=== PATIENT | female | born 1995 | race Caucasian/White ===

== ENCOUNTER 2017-04-07 18:53 | Emergency (ER) | payer BC ==
--- NOTE | 2017-04-07 19:16 | EDM.PDOC ---
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 [No Known Home Meds] 04/07/17 [History] ED ROS GENERAL - Review of Systems Review Of Systems: ROS reveals no pertinent complaints other than HPI. ED EXAM, GENERAL - Physical Exam Exam: See Below (See dictation) Course - Vital Signs Last Recorded V/S: Last Vital Signs Temp 97.8 F 04/07/17 19:11 Pulse 115 H 04/07/17 19:11 Resp 18 04/07/17 19:11 BP 134/83 04/07/17 19:11 Pulse Ox 98 04/07/17 19:11 - Orders/Labs/Meds Orders: Active Orders 24 hr Category Date Time Status UA W/MICROSCOPIC [URIN] Stat Lab 04/07/17 20:18 Ordered Labs: Laboratory Tests 04/07/17 04/07/17 04/07/17 Range/Units 19:29 19:29 19:29 WBC 8.74 (4.0-11.0) K/uL RBC 4.57 (4.30-5.90) M/uL Hgb 13.5 (12.0-16.0) g/dL Hct 39.1 (36.0-46.0) % MCV 85.6 (80.0-98.0) fL MCH 29.5 (27.0-32.0) pg MCHC 34.5 (31.0-37.0) g/dL RDW Std Deviation 40.7 (28.0-62.0) fl RDW Coeff of Gloria 13 (11.0-15.0) % Plt Count 316 (150-400) K/uL MPV 8.60 (7.40-12.00) fL Neut % (Auto) 64.7 (48.0-80.0) % Lymph % (Auto) 25.2 (16.0-40.0) % [place] % (Auto) 9.7 (0.0-15.0) % Eos % (Auto) 0.2 (0.0-7.0) % Baso % (Auto) 0.2 (0.0-1.5) % Neut # (Auto) 5.7 (1.4-5.7) K/uL Lymph # (Auto) 2.2 (0.6-2.4) K/uL [place] # (Auto) 0.9 H (0.0-0.8) K/uL Eos # (Auto) 0.0 (0.0-0.7) K/uL Baso # (Auto) 0.0 (0.0-0.1) K/uL Nucleated RBC % 0.0 /100WBC Nucleated RBCs # 0 K/uL Sodium 138 (136-146) mmol/L Potassium 3.8 (3.5-5.1) mmol/L Chloride 111 H (98-110) mmol/L Carbon Dioxide 18 L (21-31) mmol/L BUN 10 (6.0-23.0) mg/dL Creatinine 0.7 (0.6-1.5) mg/dL Est Cr Clr Drug Dosing 106.05 mL/min Estimated GFR (MDRD) > 60.0 ml/min Glucose 114 H (60-110) mg/dL Calcium 9.1 (8.8-10.8) mg/dL Total Bilirubin 0.3 (0.1-1.5) mg/dL AST 13 (5-40) IU/L ALT 16 (8-54) IU/L Alkaline Phosphatase 71 (40-150) Total Protein 6.7 (6.0-8.0) g/dL Albumin 3.9 (3.5-5.0) g/dL Globulin 2.8 (2.0-3.5) g/dL Albumin/Globulin Ratio 1.4 (1.3-2.8) HCG, Quant 5426.3 mIU/mL Blood Type O NEGATIVE Departure - Departure Disposition: Home, Self-Care 01 Clinical Impression: - Discharge Information Referrals: PCP,None [Primary Care Provider] - Forms: ED Department Discharge Additional Instructions: vitamins recommended available [id number] most grocery stores [employer] Smoking alcohol safe cessation recommended Establish with OB provider there are 2 provider groups in [facility] call numbers below for appropriate follow-up and establish care [facility] [address] [place] [id number] [facility] [address] [address] The following information is given to patients seen in the emergency department who are being discharged to home. This information is to outline your options for follow-up care. We provide all patients seen in our emergency department with a follow-up referral. The need for follow-up, as well as the timing and circumstances, are variable depending upon the specifics of your emergency department visit. If you don't have a primary care physician on staff, we will provide you with a referral. We always advise you to contact your personal physician following an emergency department visit to inform them of the circumstance of the visit and for follow-up with them and/or the need for any referrals to a consulting specialist. The emergency department will also refer you to a specialist when appropriate. This referral assures that you have the opportunity for follow-up care with a specialist. All of these measure are taken in an effort to provide you with optimal care, which includes your follow-up. Under all circumstances we always encourage you to contact your private physician who remains a resource for coordinating your care. When calling for follow-up care, please make the office aware that this follow-up is from your recent emergency room visit. If for any reason you are refused follow-up, please contact the [facility] emergency department at and asked to speak to the emergency department charge nurse. - My Orders Last 24 Hours: My Active Orders 04/07/17 20:18 UA W/MICROSCOPIC [URIN] Stat - Assessment/Plan Last 24 Hours: My Active Orders 04/07/17 20:18 UA W/MICROSCOPIC [URIN] Stat <Braeden Price - Last Filed: 04/07/17 21:06> ED HPI GENERAL MEDICAL PROBLEM - General Source of Information: Reports: Patient - History of Present Illness INITIAL COMMENTS - FREE TEXT/NARRATIVE: HISTORY AND PHYSICAL: History of present illness: [Patient has had multiple home tests were positive, she has no complaints fever nausea vomiting diarrhea constipation chest pain shortness breath headache dizziness palpitation about a urine symptoms no vaginal bleeding LMP March 06 through the uncertain dates ] Patricia has taken over the patient for continued management C Patricia's detailed note Review of systems: As per history of present illness and below otherwise all systems reviewed and negative. Past medical history: As per history of present illness and as reviewed below otherwise noncontributory. Surgical history: As per history of present illness and as reviewed below otherwise noncontributory. Social history: No reported history of drug or alcohol abuse. Family history: As per history of present illness and as reviewed below otherwise noncontributory. Physical exam: HEENT: Atraumatic, normocephalic, pupils reactive, negative for conjunctival pallor or scleral icterus, mucous membranes moist, throat clear, neck supple, nontender, trachea midline. Lungs: Clear to auscultation, breath sounds equal bilaterally, chest nontender. Heart: S1S2, regular, negative for clicks, rubs, or JVD. Abdomen: Soft, nondistended, nontender. Negative for masses or hepatosplenomegaly. Negative for costovertebral tenderness. Pelvis: Stable nontender. Genitourinary: Deferred. Rectal: Deferred. Extremities: Atraumatic, negative for cords or calf pain. Neurovascular unremarkable. Neuro: Awake, alert, oriented. Cranial nerves II through XII unremarkable. Cerebellum unremarkable. Motor and sensory unremarkable throughout. Exam nonfocal. Diagnostics: []CBC CMP UA hCG ABO Therapeutics: []Endorsed to Patricia Impression: []Home positive LMP first week March uncertain dates HCG consistent with 5 weeks ABO type O negative Definitive disposition and diagnosis as appropriate pending reevaluation and review of above. Past Medical History HEENT History: Reports: None Cardiovascular History: Reports: None Respiratory History: Reports: None Gastrointestinal History: Reports: None DIRECTOR DATABASE History: Reports: None Musculoskeletal History: Reports: None Neurological History: Reports: None Psychiatric History: Reports: Anxiety Endocrine/Metabolic History: Reports: None - Infectious Disease History Infectious Disease History: Reports: None - Past Surgical History HEENT Surgical History: Reports: None Cardiovascular Surgical History: Reports: None Respiratory Surgical History: Reports: None Female Surgical History: Reports: None Endocrine Surgical History: Reports: None Social & Family History - Family History Family Medical History: Noncontributory HEENT: Reports: None Cardiac: Reports: None - Tobacco Use Smoking Status *Q: Never Smoker Years of Tobacco use: 2 Packs/Tins Daily: 0.5 - Recreational Drug Use Recreational Drug Use: No Recreational Drug Type: Reports: Marijuana/Hashish Course - Orders/Labs/Meds Labs: Laboratory Tests 04/07/17 04/07/17 04/07/17 Range/Units 19:29 19:29 19:29 WBC 8.74 (4.0-11.0) K/uL RBC 4.57 (4.30-5.90) M/uL Hgb 13.5 (12.0-16.0) g/dL Hct 39.1 (36.0-46.0) % MCV 85.6 (80.0-98.0) fL MCH 29.5 (27.0-32.0) pg MCHC 34.5 (31.0-37.0) g/dL RDW Std Deviation 40.7 (28.0-62.0) fl RDW Coeff of Gloria 13 (11.0-15.0) % Plt Count 316 (150-400) K/uL MPV 8.60 (7.40-12.00) fL Neut % (Auto) 64.7 (48.0-80.0) % Lymph % (Auto) 25.2 (16.0-40.0) % [place] % (Auto) 9.7 (0.0-15.0) % Eos % (Auto) 0.2 (0.0-7.0) % Baso % (Auto) 0.2 (0.0-1.5) % Neut # (Auto) 5.7 (1.4-5.7) K/uL Lymph # (Auto) 2.2 (0.6-2.4) K/uL [place] # (Auto) 0.9 H (0.0-0.8) K/uL Eos # (Auto) 0.0 (0.0-0.7) K/uL Baso # (Auto) 0.0 (0.0-0.1) K/uL Nucleated RBC % 0.0 /100WBC Nucleated RBCs # 0 K/uL Sodium 138 (136-146) mmol/L Potassium 3.8 (3.5-5.1) mmol/L Chloride 111 H (98-110) mmol/L Carbon Dioxide 18 L (21-31) mmol/L BUN 10 (6.0-23.0) mg/dL Creatinine 0.7 (0.6-1.5) mg/dL Est Cr Clr Drug Dosing 106.05 mL/min Estimated GFR (MDRD) > 60.0 ml/min Glucose 114 H (60-110) mg/dL Calcium 9.1 (8.8-10.8) mg/dL Total Bilirubin 0.3 (0.1-1.5) mg/dL AST 13 (5-40) IU/L ALT 16 (8-54) IU/L Alkaline Phosphatase 71 (40-150) Total Protein 6.7 (6.0-8.0) g/dL Albumin 3.9 (3.5-5.0) g/dL Globulin 2.8 (2.0-3.5) g/dL Albumin/Globulin Ratio 1.4 (1.3-2.8) HCG, Quant 5426.3 mIU/mL Blood Type O NEGATIVE Departure - Departure Time of Disposition: 21:05 Condition: Good
[2017-04-07 19:58] LABS: CHLORIDE,CL 111 mmol/L (98-110); SODIUM,NA 138 mmol/L (136-146)
[2017-04-07 22:05] VITALS: BP 136/77
== END 2017-04-07 22:01 | disposition home or self-care (01) ==
LOC: MW.ED 18:53
DX: Z34.91 Encounter for supervision of normal pregnancy, unspecified, first trimester (principal)
CPT/HCPCS: 36415; 80053; 81001; 84702; 85025; 86900; 86901; 87086; 99282; 99283

== ENCOUNTER 2017-06-27 15:42 | Emergency (ER) | payer OTHER, BC ==
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
[2017-06-27 16:57] VITALS: BP 121/74
== END 2017-06-27 16:58 | disposition home or self-care (01) ==
LOC: MW.ED 15:42
DX: Z04.1 Encounter for examination and observation following transport accident (principal); O99.332 Smoking (tobacco) complicating pregnancy, second trimester; F17.210 Nicotine dependence, cigarettes, uncomplicated; Z3A.17 17 weeks gestation of pregnancy; V49.49XA Driver injured in collision with other motor vehicles in traffic accident, initial encounter
CPT/HCPCS: 81001; 99283; 99284

== ENCOUNTER 2017-07-30 16:49 | Emergency (ER) | payer MEDICAID, BC ==
[2017-07-30] MEDS ORDERED: Sodium Chloride 0.9% 1,000 ML IV ONE (17:01)
[2017-07-30 17:08] VITALS: BP 134/79
--- NOTE | 2017-07-30 17:20 | EDM.PDOC ---
ED HPI GENERAL MEDICAL PROBLEM - General Chief Complaint: Syncope Stated Complaint: SHAKY/DIZZY Time Seen by Provider: 07/30/17 17:09 Source of Information: Reports: Patient History Limitations: Reports: No Limitations - History of Present Illness INITIAL COMMENTS - FREE TEXT/NARRATIVE: HISTORY AND PHYSICAL: History of present illness: Patient is a 21-year-old female who presents to the emergency room with complaints of shortness of breath, near syncope and low back pain. She states earlier today she had gone to a chiropractor in hopes to alleviate some chronic back pain which she associates with . Currently is 22 weeks . After being adjusted she states she felt like "he pulled a rib out of place or broke it" followed by her symptoms. No syncopal events. She denies any fever, chills, abdominal pain/cramping, nausea, vomiting, diarrhea or constipation. She does feel movement and states this has not yet change. Denies any vaginal bleeding or discharge. Review of systems: As per history of present illness and below otherwise all systems reviewed and negative. Past medical history: As per history of present illness and as reviewed below otherwise noncontributory. Surgical history: As per history of present illness and as reviewed below otherwise noncontributory. Social history: No reported history of drug or alcohol abuse. Family history: As per history of present illness and as reviewed below otherwise noncontributory. Physical exam: General: Well-developed and well-nourished 21-year-old female. Alert and oriented. Nontoxic appearing and in no acute distress. HEENT: Atraumatic, normocephalic, pupils equal and reactive bilaterally, negative for conjunctival pallor or scleral icterus, mucous membranes moist, throat clear, neck supple, nontender, trachea midline. No drooling or trismus noted. No meningeal signs Lungs: Clear to auscultation, breath sounds equal bilaterally, chest nontender. Heart: S1S2, regular rate and rhythm without overt murmur Abdomen: Soft, nondistended, nontender. Negative for masses or hepatosplenomegaly. Negative for costovertebral tenderness. Pelvis: Stable nontender. Genitourinary: Deferred. Rectal: Deferred. Skin: Intact, warm, dry. No lesions or rashes noted. Extremities: Atraumatic, negative for cords or calf pain. Neurovascular unremarkable. Neuro: Awake, alert, oriented. Cranial nerves II through XII unremarkable. Cerebellum unremarkable. Motor and sensory unremarkable throughout. Exam nonfocal. Notes: Vital signs have been reviewed by me. We'll give the patient IV fluids. Routine lab work will be done. Urinalysis shows a UTI. A culture has been added. Will treat with Augmentin. She states she feels much better after her IV fluids. Vital signs have improved. She is going to be sent down to OB for evaluation she is cleared through the emergency room. Diagnostics: CBC, CMP, EKG, heart tones, orthostatic vital signs Therapeutics: IV fluid Impression: Near syncope UTI Second trimester Plan: 1. Please take the antibiotic as directed. Increase your oral fluids. Change positions (sitting to standing etc..) slowly. Small, frequent meals throughout the day. 2. Directly be evaluated in OB. Continue your OB care with your OBGYN as directed. 3. Return to the ED as needed and as discussed. Definitive disposition and diagnosis as appropriate pending reevaluation and review of above. Onset: Today Duration: Hour(s): Chest Pain Score (Numeric/FACES): 6 - Related Data Allergies Allergy/AdvReac Type Severity Reaction Status Date / Time No Known Allergies Allergy Verified 07/30/17 17:08 Home Meds: Home Meds . 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: Musculoskeletal History: Reports: None Neurological History: Reports: None Psychiatric History: Reports: Anxiety Endocrine/Metabolic History: Reports: None - Infectious Disease History Infectious Disease History: Reports: Chicken Pox - Past Surgical History HEENT Surgical History: Reports: Tonsillectomy Cardiovascular Surgical History: Reports: None Respiratory Surgical History: Reports: None Female Surgical History: Reports: None Endocrine Surgical History: Reports: None Social & Family History - Family History Family Medical History: Noncontributory HEENT: Reports: None Cardiac: Reports: None - Tobacco Use Smoking Status *Q: Never Smoker Years of Tobacco use: 2 Packs/Tins Daily: 0.5 - Caffeine Use Caffeine Use: Reports: Other - Recreational Drug Use Recreational Drug Use: No Recreational Drug Type: Reports: Marijuana/Hashish ED ROS GENERAL - Review of Systems Review Of Systems: ROS reveals no pertinent complaints other than HPI. - Physical Exam Exam: See Below (See dictation) Course - Vital Signs Last Recorded V/S: Last Vital Signs Temp 98.2 F 07/30/17 16:56 Pulse 125 H 07/30/17 16:56 Resp 22 H 07/30/17 16:56 BP 134/79 07/30/17 16:56 Pulse Ox 94 L 07/30/17 16:56 Orthostatic Blood Pressure [ 118/62 Standing] Orthostatic Blood Pressure [ 120/64 Sitting] Orthostatic Blood Pressure [ 112/59 Supine] - Orders/Labs/Meds Orders: Active Orders 24 hr Category Date Time Status Communication Order [RC] STAT Care 07/30/17 17:02 Active EKG Documentation Completion [RC] STAT Care 07/30/17 17:01 Active Orthostatic Vital Signs [RC] ASDIRECTED Care 07/30/17 17:20 Active HCG QUALITATIVE,URINE [URCHEM] Stat Lab 07/30/17 17:39 Ordered UA W/MICROSCOPIC [URIN] Stat Lab 07/30/17 17:36 Ordered Labs: Laboratory Tests 07/30/17 07/30/17 07/30/17 Range/Units 17:15 17:15 17:36 WBC 10.53 (4.0-11.0) K/uL RBC 4.14 L (4.30-5.90) M/uL Hgb 12.4 (12.0-16.0) g/dL Hct 35.5 L (36.0-46.0) % MCV 85.7 (80.0-98.0) fL MCH 30.0 (27.0-32.0) pg MCHC 34.9 (31.0-37.0) g/dL RDW Std Deviation 41.4 (28.0-62.0) fl RDW Coeff of Gloria 13 (11.0-15.0) % Plt Count 284 (150-400) K/uL MPV 8.70 (7.40-12.00) fL Neut % (Auto) 72.9 (48.0-80.0) % Lymph % (Auto) 20.7 (16.0-40.0) % [place] % (Auto) 6.0 (0.0-15.0) % Eos % (Auto) 0.3 (0.0-7.0) % Baso % (Auto) 0.1 (0.0-1.5) % Neut # (Auto) 7.7 H (1.4-5.7) K/uL Lymph # (Auto) 2.2 (0.6-2.4) K/uL [place] # (Auto) 0.6 (0.0-0.8) K/uL Eos # (Auto) 0.0 (0.0-0.7) K/uL Baso # (Auto) 0.0 (0.0-0.1) K/uL Nucleated RBC % 0.0 /100WBC Nucleated RBCs # 0 K/uL Sodium 137 (136-145) mmol/L Potassium 3.4 L (3.5-5.1) mmol/L Chloride 105 (98-107) mmol/L Carbon Dioxide 20.2 L (21.0-32.0) mmol/L BUN 9 (7.0-18.0) mg/dL Creatinine 0.6 (0.6-1.0) mg/dL Est Cr Clr Drug Dosing 134.58 mL/min Estimated GFR (MDRD) > 60.0 ml/min Glucose 124 H (74-106) mg/dL Calcium 8.7 (8.5-10.1) mg/dL Total Bilirubin 0.2 (0.2-1.0) mg/dL AST 14 L (15-37) IU/L ALT 16 (14-63) IU/L Alkaline Phosphatase 71 (46-116) U/L Total Protein 6.2 L (6.4-8.2) g/dL Albumin 2.6 L (3.4-5.0) g/dL Globulin 3.6 H (2.0-3.5) g/dL Albumin/Globulin Ratio 0.7 L (1.3-2.8) Urine Color YELLOW Urine Appearance SLT CLOUDY Urine pH 6.0 (5.0-8.0) Ur Specific [place] >= 1.030 (1.001-1.035) Urine Protein 30 (NEGATIVE) mg/dL Urine Glucose (UA) NEGATIVE (NEGATIVE) mg/dL Urine Ketones TRACE H (NEGATIVE) mg/dL Urine Occult Blood NEGATIVE (NEGATIVE) Urine Nitrite NEGATIVE (NEGATIVE) Urine Bilirubin NEGATIVE (NEGATIVE) Urine Urobilinogen 0.2 (<2.0) EU/dL Ur Leukocyte Esterase TRACE (NEGATIVE) Urine RBC 0-2 (0-2/HPF) Urine WBC 4-8 (0-5/HPF) Ur Epithelial Cells MANY (NONE-FEW) Urine Bacteria 2+ H (NEGATIVE) Urine Mucus LIGHT (NONE-MOD) Urine HCG, Qual (NEGATIVE) 07/30/17 Range/Units 17:39 WBC (4.0-11.0) K/uL RBC (4.30-5.90) M/uL Hgb (12.0-16.0) g/dL Hct (36.0-46.0) % MCV (80.0-98.0) fL MCH (27.0-32.0) pg MCHC (31.0-37.0) g/dL RDW Std Deviation (28.0-62.0) fl RDW Coeff of Gloria (11.0-15.0) % Plt Count (150-400) K/uL MPV (7.40-12.00) fL Neut % (Auto) (48.0-80.0) % Lymph % (Auto) (16.0-40.0) % [place] % (Auto) (0.0-15.0) % Eos % (Auto) (0.0-7.0) % Baso % (Auto) (0.0-1.5) % Neut # (Auto) (1.4-5.7) K/uL Lymph # (Auto) (0.6-2.4) K/uL [place] # (Auto) (0.0-0.8) K/uL Eos # (Auto) (0.0-0.7) K/uL Baso # (Auto) (0.0-0.1) K/uL Nucleated RBC % /100WBC Nucleated RBCs # K/uL Sodium (136-145) mmol/L Potassium (3.5-5.1) mmol/L Chloride (98-107) mmol/L Carbon Dioxide (21.0-32.0) mmol/L BUN (7.0-18.0) mg/dL Creatinine (0.6-1.0) mg/dL Est Cr Clr Drug Dosing mL/min Estimated GFR (MDRD) ml/min Glucose (74-106) mg/dL Calcium (8.5-10.1) mg/dL Total Bilirubin (0.2-1.0) mg/dL AST (15-37) IU/L ALT (14-63) IU/L Alkaline Phosphatase (46-116) U/L Total Protein (6.4-8.2) g/dL Albumin (3.4-5.0) g/dL Globulin (2.0-3.5) g/dL Albumin/Globulin Ratio (1.3-2.8) Urine Color Urine Appearance Urine pH (5.0-8.0) Ur Specific [place] (1.001-1.035) Urine Protein (NEGATIVE) mg/dL Urine Glucose (UA) (NEGATIVE) mg/dL Urine Ketones (NEGATIVE) mg/dL Urine Occult Blood (NEGATIVE) Urine Nitrite (NEGATIVE) Urine Bilirubin (NEGATIVE) Urine Urobilinogen (<2.0) EU/dL Ur Leukocyte Esterase (NEGATIVE) Urine RBC (0-2/HPF) Urine WBC (0-5/HPF) Ur Epithelial Cells (NONE-FEW) Urine Bacteria (NEGATIVE) Urine Mucus (NONE-MOD) Urine HCG, Qual POSITIVE (NEGATIVE) Meds: Medications Discontinued Medications Generic Name Dose Route Start Last Admin Trade Name Freq PRN Reason Stop Dose Admin Sodium Chloride 1,000 mls @ 999 mls/hr 07/30/17 17:01 07/30/17 17:24 Normal Saline IV 07/30/17 18:01 999 mls/hr STAT ONE Administration Departure - Departure Time of Disposition: 18:11 Disposition: Home, Self-Care 01 Clinical Impression: Near syncope, UTI (urinary tract infection), Second trimester - Discharge Information Instructions: Urinary Tract Infection, Adult, [id number], Near-Syncope, Easy- to-Read Referrals: PCP,None [Primary Care Provider] - Forms: ED Department Discharge Additional Instructions: The following information is given to patients seen in the emergency department who are being discharged to home. This information is to outline your options for follow-up care. We provide all patients seen in our emergency department with a follow-up referral. The need for follow-up, as well as the timing and circumstances, are variable depending upon the specifics of your emergency department visit. If you don't have a primary care physician on staff, we will provide you with a referral. We always advise you to contact your personal physician following an emergency department visit to inform them of the circumstance of the visit and for follow-up with them and/or the need for any referrals to a consulting specialist. The emergency department will also refer you to a specialist when appropriate. This referral assures that you have the opportunity for follow-up care with a specialist. All of these measure are taken in an effort to provide you with optimal care, which includes your follow-up. Under all circumstances we always encourage you to contact your private physician who remains a resource for coordinating your care. When calling for follow-up care, please make the office aware that this follow-up is from your recent emergency room visit. If for any reason you are refused follow-up, please contact the [facility] Emergency Department at and asked to speak to the emergency department charge nurse. [facility] Primary [facility] - [facility] [address] [place] [id number] [facility] [address] [place] [id number] 1. Please take the antibiotic as directed. Increase your oral fluids. Change positions (sitting to standing etc..) slowly. Small, frequent meals throughout the day. 2. Directly be evaluated in OB. Continue your OB care with your OBGYN as directed. 3. Return to the ED as needed and as discussed. - My Orders Last 24 Hours: My Active Orders 07/30/17 17:01 EKG Documentation Completion [RC] STAT 07/30/17 17:02 Communication Order [RC] STAT 07/30/17 17:20 Orthostatic Vital Signs [RC] ASDIRECTED 07/30/17 17:36 UA W/MICROSCOPIC [URIN] Stat 07/30/17 17:39 HCG QUALITATIVE,URINE [URCHEM] Stat - Assessment/Plan Last 24 Hours: My Active Orders 07/30/17 17:01 EKG Documentation Completion [RC] STAT 07/30/17 17:02 Communication Order [RC] STAT 07/30/17 17:20 Orthostatic Vital Signs [RC] ASDIRECTED 07/30/17 17:36 UA W/MICROSCOPIC [URIN] Stat 07/30/17 17:39 HCG QUALITATIVE,URINE [URCHEM] Stat
[2017-07-30 17:57] LABS: CHLORIDE,CL 105 mmol/L (98-107); SODIUM,NA 137 mmol/L (136-145)
== END 2017-07-30 18:30 | disposition home or self-care (01) ==
LOC: MW.ED 16:49
DX: O23.42 Unspecified infection of urinary tract in pregnancy, second trimester (principal); R55 Syncope and collapse; Z3A.22 22 weeks gestation of pregnancy
CPT/HCPCS: 36415; 80053; 81001; 81025; 85025; 96360; 99284; J7040; 99283

== ENCOUNTER 2018-09-06 19:01 | Emergency (ER) | payer BC, MEDICAID ==
[2018-09-06] MEDS ORDERED: Ondansetron 4 MG/2 ML SDV IVPUSH ONE (19:13)
[2018-09-06] MEDS ORDERED: Ketorolac 30 MG/ML SDV IVPUSH ONE (19:13)
[2018-09-06] MEDS ORDERED: Sodium Chloride 0.9% 1,000 ML IV ONE (19:13)
--- NOTE | 2018-09-06 19:15 | EDM.PDOC ---
ED HPI GENERAL MEDICAL PROBLEM - General Chief Complaint: Headache Stated Complaint: HEAD PAIN Time Seen by Provider: 09/06/18 19:14 Source of Information: Reports: Patient - History of Present Illness INITIAL COMMENTS - FREE TEXT/NARRATIVE: HISTORY AND PHYSICAL: History of present illness: [Patient presents with diffuse headache 6 out of 10 nonradiating no light sensitivity or noise sensitivity no nausea vomiting chills sweats pain present for 1 week ] Review of systems: As per history of present illness and below otherwise all systems reviewed and negative. Past medical history: As per history of present illness and as reviewed below otherwise noncontributory. Surgical history: As per history of present illness and as reviewed below otherwise noncontributory. Social history: No reported history of drug or alcohol abuse. Family history: As per history of present illness and as reviewed below otherwise noncontributory. Physical exam: HEENT: Atraumatic, normocephalic, pupils reactive, negative for conjunctival pallor or scleral icterus, mucous membranes moist, throat clear, neck supple, nontender, trachea midline. Lungs: Clear to auscultation, breath sounds equal bilaterally, chest nontender. Heart: S1S2, regular, negative for clicks, rubs, or JVD. Abdomen: Soft, nondistended, nontender. Negative for masses or hepatosplenomegaly. Negative for costovertebral tenderness. Pelvis: Stable nontender. Genitourinary: Deferred. Rectal: Deferred. Extremities: Atraumatic, negative for cords or calf pain. Neurovascular unremarkable. Neuro: Awake, alert, oriented. Cranial nerves II through XII unremarkable. Cerebellum unremarkable. Motor and sensory unremarkable throughout. Exam nonfocal. Diagnostics: [CBC CMP UA hCG Head CT no contrast ] Therapeutics: [] normal saline Zofran Toradol Patient transferred to [facility] dr. Leroy excepting physician Impression: [] headache Radiology report intracranial bleed versus thrombus-recommends MRI/MRA Definitive disposition and diagnosis as appropriate pending reevaluation and review of above. 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 History: Reports: None Neurological History: Reports: None Psychiatric History: Reports: Anxiety Endocrine/Metabolic History: Reports: None - Infectious Disease History Infectious Disease History: Reports: Chicken Pox - Past Surgical History HEENT Surgical History: Reports: Tonsillectomy Cardiovascular Surgical History: Reports: None Respiratory Surgical History: Reports: None Female Surgical History: Reports: None Endocrine Surgical History: Reports: None Social & Family History - Family History Family Medical History: Noncontributory HEENT: Reports: None Cardiac: Reports: None - Caffeine Use Caffeine Use: Reports: Coffee, Energy Drinks, Soda ED ROS GENERAL - Review of Systems Review Of Systems: See Below ED EXAM, GENERAL - Physical Exam Exam: See Below Course - Vital Signs Last Recorded V/S: Last Vital Signs Temp 98.3 F 09/06/18 19:16 Pulse 95 09/06/18 20:21 Resp 18 09/06/18 20:21 BP 128/60 09/06/18 20:21 Pulse Ox 98 09/06/18 20:21 - Orders/Labs/Meds Labs: Laboratory Tests 09/06/18 09/06/18 09/06/18 Range/Units 19:20 19:20 19:30 WBC 10.66 (4.0-11.0) K/uL RBC 4.83 (4.30-5.90) M/uL Hgb 13.9 (12.0-16.0) g/dL Hct 40.8 (36.0-46.0) % MCV 84.5 (80.0-98.0) fL MCH 28.8 (27.0-32.0) pg MCHC 34.1 (31.0-37.0) g/dL RDW Std Deviation 39.9 (28.0-62.0) fl RDW Coeff of [place] 13 (11.0-15.0) % Plt Count 277 (150-400) K/uL MPV 8.70 (7.40-12.00) fL Neut % (Auto) 65.4 (48.0-80.0) % Lymph % (Auto) 26.4 (16.0-40.0) % [place] % (Auto) 7.6 (0.0-15.0) % Eos % (Auto) 0.4 (0.0-7.0) % Baso % (Auto) 0.2 (0.0-1.5) % Neut # (Auto) 7.0 H (1.4-5.7) K/uL Lymph # (Auto) 2.8 H (0.6-2.4) K/uL [place] # (Auto) 0.8 (0.0-0.8) K/uL Eos # (Auto) 0.0 (0.0-0.7) K/uL Baso # (Auto) 0.0 (0.0-0.1) K/uL Nucleated RBC % 0.0 /100WBC Nucleated RBCs # 0 K/uL Sodium (136-145) mmol/L Potassium (3.5-5.1) mmol/L Chloride (98-107) mmol/L Carbon Dioxide (21.0-32.0) mmol/L BUN (7.0-18.0) mg/dL Creatinine (0.6-1.0) mg/dL Est Cr Clr Drug Dosing mL/min Estimated GFR (MDRD) ml/min Glucose (74-106) mg/dL Calcium (8.5-10.1) mg/dL Total Bilirubin (0.2-1.0) mg/dL AST (15-37) IU/L ALT (14-63) IU/L Alkaline Phosphatase (46-116) U/L Total Protein (6.4-8.2) g/dL Albumin (3.4-5.0) g/dL Globulin (2.6-4.0) g/dL Albumin/Globulin Ratio (0.9-1.6) Urine Color YELLOW Urine Appearance CLEAR Urine pH 7.0 (5.0-8.0) Ur Specific [place] 1.015 (1.001-1.035) Urine Protein NEGATIVE (NEGATIVE) mg/dL Urine Glucose (UA) NEGATIVE (NEGATIVE) mg/dL Urine Ketones NEGATIVE (NEGATIVE) mg/dL Urine Occult Blood NEGATIVE (NEGATIVE) Urine Nitrite NEGATIVE (NEGATIVE) Urine Bilirubin NEGATIVE (NEGATIVE) Urine Urobilinogen 0.2 (<2.0) EU/dL Ur Leukocyte Esterase NEGATIVE (NEGATIVE) Urine HCG, Qual NEGATIVE (NEGATIVE) 09/06/18 Range/Units 19:30 WBC (4.0-11.0) K/uL RBC (4.30-5.90) M/uL Hgb (12.0-16.0) g/dL Hct (36.0-46.0) % MCV (80.0-98.0) fL MCH (27.0-32.0) pg MCHC (31.0-37.0) g/dL RDW Std Deviation (28.0-62.0) fl RDW Coeff of [place] (11.0-15.0) % Plt Count (150-400) K/uL MPV (7.40-12.00) fL Neut % (Auto) (48.0-80.0) % Lymph % (Auto) (16.0-40.0) % [place] % (Auto) (0.0-15.0) % Eos % (Auto) (0.0-7.0) % Baso % (Auto) (0.0-1.5) % Neut # (Auto) (1.4-5.7) K/uL Lymph # (Auto) (0.6-2.4) K/uL [place] # (Auto) (0.0-0.8) K/uL Eos # (Auto) (0.0-0.7) K/uL Baso # (Auto) (0.0-0.1) K/uL Nucleated RBC % /100WBC Nucleated RBCs # K/uL Sodium 139 (136-145) mmol/L Potassium 3.7 (3.5-5.1) mmol/L Chloride 104 (98-107) mmol/L Carbon Dioxide 24.1 (21.0-32.0) mmol/L BUN 9 (7.0-18.0) mg/dL Creatinine 0.8 (0.6-1.0) mg/dL Est Cr Clr Drug Dosing 100.10 mL/min Estimated GFR (MDRD) > 60.0 ml/min Glucose 109 H (74-106) mg/dL Calcium 8.9 (8.5-10.1) mg/dL Total Bilirubin 0.4 (0.2-1.0) mg/dL AST 13 L (15-37) IU/L ALT 20 (14-63) IU/L Alkaline Phosphatase 88 (46-116) U/L Total Protein 7.4 (6.4-8.2) g/dL Albumin 3.4 (3.4-5.0) g/dL Globulin 4.0 (2.6-4.0) g/dL Albumin/Globulin Ratio 0.9 (0.9-1.6) Urine Color Urine Appearance Urine pH (5.0-8.0) Ur Specific [place] (1.001-1.035) Urine Protein (NEGATIVE) mg/dL Urine Glucose (UA) (NEGATIVE) mg/dL Urine Ketones (NEGATIVE) mg/dL Urine Occult Blood (NEGATIVE) Urine Nitrite (NEGATIVE) Urine Bilirubin (NEGATIVE) Urine Urobilinogen (<2.0) EU/dL Ur Leukocyte Esterase (NEGATIVE) Urine HCG, Qual (NEGATIVE) Meds: Medications Discontinued Medications Generic Name Dose Route Start Last Admin Trade Name Freq PRN Reason Stop Dose Admin Sodium Chloride 1,000 mls @ 999 mls/hr 09/06/18 19:13 09/06/18 19:35 Normal Saline IV 09/06/18 20:13 999 mls/hr STAT ONE Administration Ketorolac Tromethamine 30 mg 09/06/18 19:13 09/06/18 19:38 Toradol IVPUSH 09/06/18 19:14 30 mg ONETIME ONE Administration Ondansetron HCl 8 mg 09/06/18 19:13 09/06/18 19:36 Zofran IVPUSH 09/06/18 19:14 8 mg ONETIME ONE Administration Departure - Departure Time of Disposition: 20:34 Disposition: DC/Tfer to Acute Hospital 02 Condition: Fair Clinical Impression: Headache, Intracranial hemorrhage - Discharge Information Referrals: Licha Hodge NP [Primary Care Provider] - Forms: ED Department Discharge
[2018-09-06 20:06] LABS: CHLORIDE,CL 104 mmol/L (98-107); SODIUM,NA 139 mmol/L (136-145)
--- NOTE | 2018-09-06 20:29 | CT ---
INDICATION: Headache TECHNIQUE: CT head without contrast. COMPARISON: None available FINDINGS: The ventricles and sulci are within normal limits. There is no mass effect or midline shift. There is an irregular area of increased attenuation along the lateral aspect of the left tentorium, which could represent thrombosis within a variant left transverse sinus, and there is increased attenuation in the region of the left sigmoid sinus on images 45 and 46 of series 203, versus small amount of peritentorial subdural blood. There is no loss of rudolph-white differentiation. No acute calvarial fracture is seen. The visualized paranasal sinuses and mastoid air cells are clear. The visualized orbits are within normal limits. There is an apparent polypoid soft tissue density in the nasopharynx. IMPRESSION: A high attenuation area along the lateral aspect of the left tentorium could represents regional dural sinus thrombosis involving the lateral left transverse sinus and extending to the sigmoid sinus, versus small amount of extra-axial, peritentorial blood. Recommend further evaluation with MRI/MRV. An apparent polypoid lesion in the nasopharynx. Correlate with ENT evaluation. The findings were discussed with Dr. Price, by phone, on 09/06/2018 at 8:20 p.m.. Dictated by Buddy Marx MD @ 09/06/2018 8:27:35 PM Please note that all CT scans at this facility use dose modulation, iterative reconstruction, and/or weight-based dosing when appropriate to reduce radiation dose to as low as reasonably achievable. Dictated by: Buddy Marx MD @ 09/06/2018 20:28:37 (Electronically Signed)
[2018-09-06 21:03] VITALS: BP 127/77
== END 2018-09-06 21:00 ==
LOC: MW.ED 19:01
DX: I62.9 Nontraumatic intracranial hemorrhage, unspecified (principal)
CPT/HCPCS: 36415; 70450; 80053; 81003; 81025; 85025; 96360; 96374; 96375; 99285; J1885; J2405; J7040

== ENCOUNTER 2018-09-18 10:39 | Emergency (ER) | payer BC, MEDICAID ==
[2018-09-18] MEDS ORDERED: Bacitracin Oint 1 GM U/D Packet TOP ONE (10:46)
--- NOTE | 2018-09-18 10:46 | EDM.PDOC ---
ED HPI GENERAL MEDICAL PROBLEM - General Chief Complaint: Laceration Stated Complaint: FINGER LACERATION Time Seen by Provider: 09/18/18 10:39 Source of Information: Reports: Patient History Limitations: Reports: No Limitations - History of Present Illness INITIAL COMMENTS - FREE TEXT/NARRATIVE: HISTORY AND PHYSICAL: History of present illness: Patient is a 22-year-old female who presents to the emergency room with a laceration to her left index finger. Patient cut her finger while at work. She currently is on blood thinners for previously diagnosed blood clot. Tetanus has been updated within the last 5 years. Review of systems: As per history of present illness and below otherwise all systems reviewed and negative. Past medical history: As per history of present illness and as reviewed below otherwise noncontributory. Surgical history: As per history of present illness and as reviewed below otherwise noncontributory. Social history: See social history for further information Family history: As per history of present illness and as reviewed below otherwise noncontributory. Physical exam: General: Well-developed and well-nourished 22-year-old female. Alert and oriented. Nontoxic appearing and in no acute distress. HEENT: Atraumatic, normocephalic, pupils equal and reactive bilaterally, negative for conjunctival pallor or scleral icterus, mucous membranes moist, trachea midline. No drooling or trismus noted. No meningeal signs. No hot potato voice noted. Lungs: Clear to auscultation, breath sounds equal bilaterally, chest nontender. Heart: S1S2, regular rate and rhythm without overt murmur Abdomen: Soft, nondistended, nontender. Skin: 1.5cm "U" shaped laceration to pad of left index finger, does not involve the nailbed. Otherwise skin is intact, warm, dry. No lesions or rashes noted. Extremities: See skin for details, moves all extremities per self without difficulty or deficits, negative for cords or calf pain. Neurovascular unremarkable. Neuro: Awake, alert, oriented. Cranial nerves II through XII unremarkable. Cerebellum unremarkable. Motor and sensory unremarkable throughout. Exam nonfocal. Notes: Area was thoroughly cleansed with chlorhexidine and wound wash. 1% lidocaine was used to anesthetize the area. Usual and customary procedures were followed for suture placement. 4-0 nylon, #6 interrupted sutures were placed without difficulty. No current bleeding. Bacitracin nonstick dressing applied. Supportive care measures were reviewed and discussed. Voices understanding and is agreeable to plan of care. Denies any further questions or concerns at this time. Diagnostics: None Therapeutics: 1% lidocaine, wound care, bacitracin dressing Prescription: None Impression: Laceration Plan: 1. Keep the area clean and dry. Continue to monitor for signs of infection. Sutures to be removed in 7-10 days. 2. Tylenol and/or ibuprofen as needed for pain management. 3. Please follow-up with your primary care provider in the next 1-2 days. Return to the ED as needed and as discussed. Definitive disposition and diagnosis as appropriate pending reevaluation and review of above. 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: Musculoskeletal History: Reports: None Neurological History: Reports: None Psychiatric History: Reports: Anxiety Endocrine/Metabolic History: Reports: None - Infectious Disease History Infectious Disease History: Reports: Chicken Pox - Past Surgical History HEENT Surgical History: Reports: Tonsillectomy Cardiovascular Surgical History: Reports: None Respiratory Surgical History: Reports: None Female Surgical History: Reports: None Endocrine Surgical History: Reports: None Social & Family History - Family History Family Medical History: Noncontributory HEENT: Reports: None Cardiac: Reports: None - Caffeine Use Caffeine Use: Reports: Coffee, Energy Drinks, Soda ED ROS GENERAL - Review of Systems Review Of Systems: ROS reveals no pertinent complaints other than HPI. ED EXAM, SKIN/RASH Exam: See Below (See dictation) ED SKIN PROCEDURES - Laceration/Wound Repair Left index finger Lac/Wound length In cm: 1.5 Appearance: Linear, Clean Distal NVT: Neuro & Vascular Intact, No Tendon Injury Anesthetic Type: Local Local Anesthesia - Lidocaine (Xylocaine): 1% Plain Local Anesthetic Volume: 1cc Skin Prep: Chlorhexidine (Hibiciens) Saline Irrigation (cc's): 25 Exploration/Debridement/Repair: Wound Explored, No Foreign Material Found Closed with: Sutures Suture Size: 4-0 # of Sutures: 6 Suture Type: Nylon, Interrupted Drain Placement: No Sterile Dressing Applied: Provider Tetanus Status Addressed: Yes Complications: No Course - Vital Signs Last Recorded V/S: Last Vital Signs Temp 98.0 F 09/18/18 10:48 Pulse 104 H 09/18/18 10:48 Resp 18 09/18/18 10:48 BP 150/91 H 09/18/18 10:48 Pulse Ox 96 09/18/18 10:48 - Orders/Labs/Meds Meds: Medications Discontinued Medications Generic Name Dose Route Start Last Admin Trade Name Freq PRN Reason Stop Dose Admin Bacitracin 1 dose 09/18/18 10:46 Bacitracin Oint 1 Gm TOP 09/18/18 10:47 ONETIME ONE Lidocaine HCl 5 ml 09/18/18 10:44 Xylocaine-Mpf 1% INJECT 09/18/18 10:45 ONETIME ONE Departure - Departure Time of Disposition: 11:09 Disposition: Home, Self-Care 01 Clinical Impression: Laceration - Discharge Information Instructions: Laceration Care, Adult, [id number] Referrals: Mary Tomas NP [Primary Care Provider] - Forms: ED Department Discharge Additional Instructions: The following information is given to patients seen in the emergency department who are being discharged to home. This information is to outline your options for follow-up care. We provide all patients seen in our emergency department with a follow-up referral. The need for follow-up, as well as the timing and circumstances, are variable depending upon the specifics of your emergency department visit. If you don't have a primary care physician on staff, we will provide you with a referral. We always advise you to contact your personal physician following an emergency department visit to inform them of the circumstance of the visit and for follow-up with them and/or the need for any referrals to a consulting specialist. The emergency department will also refer you to a specialist when appropriate. This referral assures that you have the opportunity for follow-up care with a specialist. All of these measure are taken in an effort to provide you with optimal care, which includes your follow-up. Under all circumstances we always encourage you to contact your private physician who remains a resource for coordinating your care. When calling for follow-up care, please make the office aware that this follow-up is from your recent emergency room visit. If for any reason you are refused follow-up, please contact the [facility] Emergency Department at and asked to speak to the emergency department charge nurse. [facility] [address] [place] [address] [facility] [address] [place] [id number] 1. Keep the area clean and dry. Continue to monitor for signs of infection. Sutures to be removed in 7-10 days. 2. Tylenol and/or ibuprofen as needed for pain management. 3. Please follow-up with your primary care provider in the next 1-2 days. Return to the ED as needed and as discussed.
[2018-09-18 10:54] VITALS: BP 150/91
== END 2018-09-18 11:25 | disposition home or self-care (01) ==
LOC: MW.ED 10:39
DX: S61.211A Laceration without foreign body of left index finger without damage to nail, initial encounter (principal); Z79.01 Long term (current) use of anticoagulants; W26.9XXA Contact with unspecified sharp object(s), initial encounter; Y99.0 Civilian activity done for income or pay
CPT/HCPCS: 12001; 99282; J2001

== ENCOUNTER 2018-09-25 10:03 | Emergency (ER) | payer BC, MEDICAID ==
[2018-09-25 11:38] VITALS: BP 140/91
== END 2018-09-25 10:24 | disposition left against medical advice (07) ==
LOC: MW.ED 10:03
DX: Z53.21 Procedure and treatment not carried out due to patient leaving prior to being seen by health care provider (principal)

== ENCOUNTER 2018-11-19 20:08 | Emergency (ER) | payer BC, MEDICAID ==
[2018-11-19] MEDS ORDERED: Sodium Chloride 0.9% 1,000 ML IV ONE (20:27)
--- NOTE | 2018-11-19 20:31 | EDM.PDOC ---
ED HPI GENERAL MEDICAL PROBLEM - General Chief Complaint: General Stated Complaint: PT HAS BLOOD CLOTS Time Seen by Provider: 11/19/18 20:23 - History of Present Illness INITIAL COMMENTS - FREE TEXT/NARRATIVE: HISTORY AND PHYSICAL: History of present illness: Patient is 23-year-old female with history of cavernous sinus thrombosis is currently on Coumadin this was diagnosed in September of this year she presents now with right-sided headache and somewhat anxious about the possibility of a new event. There's been no neurological signs or symptoms otherwise and no other complaints she states she's been compliant with her Coumadin. Review of systems: As per history of present illness and below otherwise all systems reviewed and negative. Past medical history: As per history of present illness and as reviewed below otherwise noncontributory. Surgical history: As per history of present illness and as reviewed below otherwise noncontributory. Social history: No reported history of drug or alcohol abuse. Family history: As per history of present illness and as reviewed below otherwise noncontributory. Physical exam: HEENT: Atraumatic, normocephalic, pupils reactive, negative for conjunctival pallor or scleral icterus, mucous membranes moist, throat clear, neck supple, nontender, trachea midline. Lungs: Clear to auscultation, breath sounds equal bilaterally, chest nontender. Heart: S1S2, regular, negative for clicks, rubs, or JVD. Abdomen: Soft, nondistended, nontender. Negative for masses or hepatosplenomegaly. Negative for costovertebral tenderness. Pelvis: Stable nontender. Genitourinary: Deferred. Rectal: Deferred. Extremities: Atraumatic, negative for cords or calf pain. Neurovascular unremarkable. Neuro: Awake, alert, oriented. Cranial nerves II through XII unremarkable. Cerebellum unremarkable. Motor and sensory unremarkable throughout. Exam nonfocal. Diagnostics: CBC CMP hCG PT/INR CT brain with and without contrast Therapeutics: Saline 1 L bolus Impression: #1 right sided head pain #2 history of cavernous sinus thrombosis Definitive disposition and diagnosis as appropriate pending reevaluation and review of above. 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: Musculoskeletal History: Reports: None Neurological History: Reports: None Psychiatric History: Reports: Anxiety Endocrine/Metabolic History: Reports: None - Infectious Disease History Infectious Disease History: Reports: Chicken Pox - Past Surgical History HEENT Surgical History: Reports: Tonsillectomy Cardiovascular Surgical History: Reports: None Respiratory Surgical History: Reports: None Female Surgical History: Reports: None Endocrine Surgical History: Reports: None Social & Family History - Family History Family Medical History: Noncontributory HEENT: Reports: None Cardiac: Reports: None - Caffeine Use Caffeine Use: Reports: Coffee, Energy Drinks, Soda ED ROS GENERAL - Review of Systems Review Of Systems: ROS reveals no pertinent complaints other than HPI. ED EXAM, GENERAL - Physical Exam Exam: See Below (See dictation) Course - Vital Signs Last Recorded V/S: Last Vital Signs Temp 36.1 C 11/19/18 23:20 Pulse 93 11/19/18 23:20 Resp 18 11/19/18 23:20 BP 127/67 11/19/18 23:20 Pulse Ox 97 11/19/18 23:20 - Orders/Labs/Meds Labs: Laboratory Tests 11/19/18 11/19/18 11/19/18 Range/Units 20:52 20:52 20:52 WBC 8.89 (4.0-11.0) K/uL RBC 4.47 (4.30-5.90) M/uL Hgb 12.5 (12.0-16.0) g/dL Hct 36.9 (36.0-46.0) % MCV 82.6 (80.0-98.0) fL MCH 28.0 (27.0-32.0) pg MCHC 33.9 (31.0-37.0) g/dL RDW Std Deviation 40.5 (28.0-62.0) fl RDW Coeff of Gloria 13 (11.0-15.0) % Plt Count 257 (150-400) K/uL MPV 8.70 (7.40-12.00) fL Neut % (Auto) 46.9 L (48.0-80.0) % Lymph % (Auto) 44.1 H (16.0-40.0) % Harlan % (Auto) 8.0 (0.0-15.0) % Eos % (Auto) 0.8 (0.0-7.0) % Baso % (Auto) 0.2 (0.0-1.5) % Neut # (Auto) 4.2 (1.4-5.7) K/uL Lymph # (Auto) 3.9 H (0.6-2.4) K/uL Harlan # (Auto) 0.7 (0.0-0.8) K/uL Eos # (Auto) 0.1 (0.0-0.7) K/uL Baso # (Auto) 0.0 (0.0-0.1) K/uL Nucleated RBC % 0.0 /100WBC Nucleated RBCs # 0 K/uL INR 2.29 Sodium 143 (136-145) mmol/L Potassium 3.4 L (3.5-5.1) mmol/L Chloride 109 H (98-107) mmol/L Carbon Dioxide 22.8 (21.0-32.0) mmol/L BUN 15 (7.0-18.0) mg/dL Creatinine 0.9 (0.6-1.0) mg/dL Est Cr Clr Drug Dosing 91.79 mL/min Estimated GFR (MDRD) > 60.0 ml/min Glucose 127 H (74-106) mg/dL Calcium 8.6 (8.5-10.1) mg/dL Total Bilirubin 0.2 (0.2-1.0) mg/dL AST 16 (15-37) IU/L ALT 23 (14-63) IU/L Alkaline Phosphatase 102 (46-116) U/L Total Protein 6.5 (6.4-8.2) g/dL Albumin 3.2 L (3.4-5.0) g/dL Globulin 3.3 (2.6-4.0) g/dL Albumin/Globulin Ratio 1.0 (0.9-1.6) HCG, Qual (NEG) 11/19/18 Range/Units 20:52 WBC (4.0-11.0) K/uL RBC (4.30-5.90) M/uL Hgb (12.0-16.0) g/dL Hct (36.0-46.0) % MCV (80.0-98.0) fL MCH (27.0-32.0) pg MCHC (31.0-37.0) g/dL RDW Std Deviation (28.0-62.0) fl RDW Coeff of Gloria (11.0-15.0) % Plt Count (150-400) K/uL MPV (7.40-12.00) fL Neut % (Auto) (48.0-80.0) % Lymph % (Auto) (16.0-40.0) % Harlan % (Auto) (0.0-15.0) % Eos % (Auto) (0.0-7.0) % Baso % (Auto) (0.0-1.5) % Neut # (Auto) (1.4-5.7) K/uL Lymph # (Auto) (0.6-2.4) K/uL Harlan # (Auto) (0.0-0.8) K/uL Eos # (Auto) (0.0-0.7) K/uL Baso # (Auto) (0.0-0.1) K/uL Nucleated RBC % /100WBC Nucleated RBCs # K/uL INR Sodium (136-145) mmol/L Potassium (3.5-5.1) mmol/L Chloride (98-107) mmol/L Carbon Dioxide (21.0-32.0) mmol/L BUN (7.0-18.0) mg/dL Creatinine (0.6-1.0) mg/dL Est Cr Clr Drug Dosing mL/min Estimated GFR (MDRD) ml/min Glucose (74-106) mg/dL Calcium (8.5-10.1) mg/dL Total Bilirubin (0.2-1.0) mg/dL AST (15-37) IU/L ALT (14-63) IU/L Alkaline Phosphatase (46-116) U/L Total Protein (6.4-8.2) g/dL Albumin (3.4-5.0) g/dL Globulin (2.6-4.0) g/dL Albumin/Globulin Ratio (0.9-1.6) HCG, Qual NEGATIVE (NEG) Meds: Medications Discontinued Medications Generic Name Dose Route Start Last Admin Trade Name Freq PRN Reason Stop Dose Admin Sodium Chloride 1,000 mls @ 999 mls/hr 11/19/18 20:27 11/19/18 20:54 Normal Saline IV 11/19/18 21:27 999 mls/hr STAT ONE Administration Iopamidol 100 ml 11/19/18 22:40 11/19/18 22:40 Isovue Multipack-370 (76%) IVPUSH 11/19/18 22:41 100 ml ONETIME STA Administration Departure - Departure Time of Disposition: 23:49 Disposition: Home, Self-Care 01 Condition: Good Clinical Impression: Cephalgia, Encounter for medical screening examination - Discharge Information Referrals: Mary Tomas NP [Primary Care Provider] - Forms: ED Department Discharge Additional Instructions: The following information is given to patients seen in the emergency department who are being discharged to home. This information is to outline your options for follow-up care. We provide all patients seen in our emergency department with a follow-up referral. The need for follow-up, as well as the timing and circumstances, are variable depending upon the specifics of your emergency department visit. If you don't have a primary care physician on staff, we will provide you with a referral. We always advise you to contact your personal physician following an emergency department visit to inform them of the circumstance of the visit and for follow-up with them and/or the need for any referrals to a consulting specialist. The emergency department will also refer you to a specialist when appropriate. This referral assures that you have the opportunity for followup care with a specialist. All of these measure are taken in an effort to provide you with optimal care, which includes your followup. Under all circumstances we always encourage you to contact your private physician who remains a resource for coordinating your care. When calling for followup care, please make the office aware that this follow-up is from your recent emergency room visit. If for any reason you are refused follow-up, please contact the [facility] emergency department at and asked to speak to the emergency department charge nurse. Continue current medications follow-up primary medical doctor as needed as discussed return as needed as discussed
[2018-11-19 21:23] LABS: CHLORIDE,CL 109 mmol/L (98-107); SODIUM,NA 143 mmol/L (136-145)
[2018-11-19] MEDS ORDERED: Iopamidol 755 MG/ML 500 ML Multipack Bottle IVPUSH STA (22:40)
--- NOTE | 2018-11-19 23:43 | CT ---
INDICATION: Headache. TECHNIQUE: After standard noncontrast head CT, high resolution axial CT images acquired through the head following rapid intravenous administration of iodinated contrast. Multiplanar MIPS of cranial vasculature performed. COMPARISON: None. FINDINGS: Noncontrast head CT: There is no intracranial hemorrhage or fluid collection. The rudolph-white matter differentiation is maintained. The ventricles are of normal morphology. The basal cisterns are clear. 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 The intracranial vasculature is otherwise unremarkable. There is no large vessel occlusion or intracranial stenosis. There is no cerebral aneurysm or evidence for vascular malformation. IMPRESSION: Essentially normal CT/CTA head. 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 Ector Cartagena MD Neurointerventional Radiologist [facility] Please note that all CT scans at this facility use dose modulation, iterative reconstruction, and/or weight-based dosing when appropriate to reduce radiation dose to as low as reasonably achievable. Dictated by Ector Cartagena MD @ Nov 20 2018 11:26AM Signed by Dr. Ector Cartagena @ Nov 20 2018 11:40AM
[2018-11-19 23:59] VITALS: BP 128/51
== END 2018-11-19 23:59 | disposition home or self-care (01) ==
LOC: MW.ED 20:08
DX: R51 Headache (principal); Z86.718 Personal history of other venous thrombosis and embolism
CPT/HCPCS: 36415; 70496; 80053; 84703; 85025; 85610; 96360; 99284; J7040; Q9967

== ENCOUNTER 2019-07-14 12:18 | Emergency (ER) | payer BC, MEDICAID ==
--- NOTE | 2019-07-14 13:06 | CT ---
Head CT Technique: Multiple axial sections through the brain were obtained. Intravenous contrast was not utilized. Comparison: Prior head CT exam of 09/06/18. Findings: Ventricles along with basal cisterns and sulci over the convexities are within normal limits for the patient's age. No abnormal parenchymal densities are seen. No evidence of intracranial hemorrhage. No midline shift or mass-effect is seen. Bone window settings were reviewed which show the visualized mastoid and paranasal sinuses to appear clear. No acute calvarial abnormality is appreciated. Impression: 1. Nothing acute is appreciated on noncontrast head CT exam. Diagnostic code #1 This report was dictated in [place] Standard Time
[2019-07-14 13:09] LABS: BLOOD UREA NITROGEN,BUN 14 mg/dL (7.0-18.0); CARBON DIOXIDE,CO2 26.6 mmol/L (21.0-32.0); CHLORIDE,CL 108 mmol/L (98-107); GLUCOSE RANDOM 87 mg/dL (74-106); POTASSIUM,K 4.1 mmol/L (3.5-5.1); SODIUM,NA 143 mmol/L (136-145)
[2019-07-14] MEDS ORDERED: Sodium Chloride 0.9% 1,000 ML IV ONE (14:18)
[2019-07-14] MEDS ORDERED: Acetaminophen 500 MG Tab PO ONE (14:18)
[2019-07-14] MEDS ORDERED: Ketorolac 30 MG/ML SDV IVPUSH ONE (14:18)
[2019-07-14] MEDS ORDERED: diphenhydrAMINE 50 MG/ML SDV IVPUSH ONE (14:18)
[2019-07-14] MEDS ORDERED: Haloperidol Lactate 5 MG/ML SDV IM ONE (14:19)
[2019-07-14] MEDS ORDERED: Dexamethasone 10 MG/ML SDV IVPUSH ONE (14:21)
--- NOTE | 2019-07-14 16:57 | MR ---
MRI venogram of the brain Technique: MR venogram sequence was obtained. Intravenous contrast was not utilized. Comparison: Prior head CT study performed earlier on the same day (12:56 PM). Findings: Dural sinuses within the brain appear to be patent. Impression: 1. No evidence of dural through venous thrombosis. Note: Cavernous sinus thrombosis is better evaluated by contrast enhanced MRI brain which could be considered if patient has no contraindications Diagnostic code #1 This report was dictated in [place] Standard Time
--- NOTE | 2019-07-14 17:53 | MR ---
MRI brain Technique: T1 sagittal and coronal; T1, FLAIR, T2 and diffusion axial Comparison: Prior head CT study performed earlier on the same day as well as MR venogram study performed on the same day. Findings: Ventricles along with basal cisterns and sulci over the convexities are within normal limits for the patient's age. No abnormal signal is seen within the brain parenchyma. No midline shift or mass-effect is seen. Cavernous sinuses appear symmetric between right and left sides. Normal signal void is seen within the carotid artery within the cavernous sinuses. No acute diffusion abnormalities are seen. Impression: 1. Symmetric appearance of the cavernous sinuses. Contrast was not utilized which would be helpful to make sure the cavernous sinus enhances symmetrically. 2. Other portions of the MRI study of the brain appear unremarkable. Diagnostic code #1 This report was dictated in [place] Standard Time
[2019-07-14 17:58] VITALS: BP 115/75; PULSE 90
--- NOTE | 2019-07-14 18:15 | EDM.PDOC ---
ED [facility] GENERAL MEDICAL PROBLEM - General Chief Complaint: Headache Stated Complaint: PAIN LT SIDE OF HEAD BEHIDE EAR Time Seen by Provider: 07/14/19 12:34 - History of Present Illness INITIAL COMMENTS - FREE TEXT/NARRATIVE: HPI 23-year-old female with a history of cavernous sinus thrombosis 2/2 antiphospholipid antibody syndrome now on warfarin presents for evaluation of a left-sided posterior regular headache consistent with the symptoms she experienced at the time of her cavernous sinus thrombosis diagnosis; notes that she also bumped her head one week ago against the cabinet, denies falls, or further head trauma. At the time that she struck her head there is no subsequent headache or changes in vision or hearing. * Denies changes in vision or hearing, fevers, neck stiffness, rashes, neck pain , temporal pain, jaw pain with chewing, dental pain, minor neck trauma, chiropractic manipulation, or head trauma. * Denies anticoagulation or hypercoaguable history. * No family members with similar symptoms. Unable to identify any higher risk exposures to possible carbon monoxide. M/S/F/SocHx notable for: please see HPI; remainder reviewed with patient and in chart. ROS: Negative constitutional, eye, cardiovascular, pulmonary, GI, , MSK, skin , neurologic, psychiatric, endocrine unless noted in the HPI. Exam HR 112, RR 18, BP 132/80, T 36.2C, SaO2 97% room air. Gen: Pleasant, non-toxic appearing, resting comfortably. HEENT: NC, AT, TMs clear bilaterally without effusions, erythema, or lesions, preauricular, pinna, and external canal skin without lesions. Dentition intact without visible caries. No frontal or maxillary sinus TTP. Temples without TTP bilaterally, equal 2+ temporal artery pulses. No paraspinal posterior neck pain. Resp: clear to auscultation bilaterally. Card: RRR GI: NT/ND : Deferred MSK: No visible deformities, strength and tone WNL. Skin: Normal color with no visible lesions. Neuro: alert and oriented 3, no facial asymmetry, no gaze preference, no slurring of speech. CN II-III: pupils equal and reactive (3->2mm bilaterally); III, IV, : EOMI, V1-V3: sensation to touch bilaterally intact; VII: no facial asymmetry (frown / smile); VIII: no nystagmus; X: phonation intact, uvula midline; XI: trapezius 5/5 bilaterally, XII: tongue midline. Psych: Mood and affect appropriate. Labs / Imaging (pertinent): WBC 9.90, HB 13.1, sodium 143, potassium 4.1 PT/INR 3.62 d-dimer <0.19 CT head: nothing acute is appreciated on non-contrasted CT exam. MRI: 1. Symmetric appearance of the cavernous sinuses. Contrast was not utilized which would be helpful to make sure the cavernous sinus enhances symmetrically. 2. Other portions of the MRI study of the brain appear unremarkable. MRV: No evidence of dural through venous thrombosis. Note: Cavernous sinus thrombosis is better evaluated by contrast enhanced MRI brain which could be considered if patient has no contraindications. MDM Previous chart, nursing note, and vitals reviewed. A: 23-year-old female with a history of cavernous sinus thrombosis 2/2 antiphospholipid antibody syndrome now on warfarin presents for evaluation of a left-sided posterior regular headache consistent with the symptoms she experienced at the time of her cavernous sinus thrombosis diagnosis; notes that she also bumped her head one week ago against the cabinet, denies falls, or further head trauma. DDx: migraine / tension headache, cluster headache, sentinel bleed/SAH, infection (SERVICE DELIVERY DIRECTOR vs CASTILLO secondary to non-SERVICE DELIVERY DIRECTOR focal infection), tumor/mass effect, hypertensive encephalopathy, glaucoma or iritis, idiopathic intracranial hypertension, cavernous sinus thrombosis, temporal arteritis. Evaluation: * Migraine / tension headache - suspect a migraine given the consistency of symptoms with prior headaches and the relative exclusion of the remainder of the differential. * Cluster - doubt cluster headache given the absence of unilateral symptoms, eye watering, swelling, or nasal congestion. * Brandywine bleed/SAH - no evidence by imaging. * Infection - Given lack of rash, meningismus, or fever; doubt meningitis. Similarly the history and exam are without evidence of acute otitis media, sinusitis, dental abscesses or clinically significant dental caries. * Mass - no evidence by imaging. * Hypertensive encephalopathy - BP within the brain's autoregulatory zone. * Glaucoma or iritis - As the patient is without reported vision changes, eye pain, and an occular exam without increases in pain on pupillary constriction further evaluation was not pursued. * Idiopathic Intracranial Hypertension - unlikely given the lack of visual symptoms, short duration of symptoms, lack of worsening with valsalva, or more prominent morning symptoms. * Thrombosis - patient with a therapeutic PT/INR, no identifiable neuro deficits , no preceding facial affections, fevers, and a negative d-dimer however, the patient was adamant that her symptoms are identical to that of her previous cavernous sinus thrombosis, given her labile PT/IR history there is a concern that she may have a mature clot without discernible neuro deficit. Discussion was had with the patient of watchful waiting versus imaging the patient wished to pursue imaging. An MRI/MRV was ordered with request to evaluate for cavernous sinus thrombosis. Upon review of imaging, it was noted that it was optimally protocolized to evaluate the cavernous sinuses. However given the therapeutic PT/INR, negative d-dimer, and entirely unremarkable MRI, MRV, and noncontrast CT head and a normal neuro exam this is felt to be effectively excluded. Further evaluation is not felt to be indicated at the present time as the patient will need to continue anticoagulation should she have a small thrombosis that has been missed by all of the above evaluations. * Temporal Arteritis - given lack of temporally localized headache, temporal tenderness or decreased temporal artery pulse, absent history of jaw claudication or vision changes; doubt. ED Course: patient given 1 L NS, 15 mg Toradol, 1 g acetaminophen, 2 mg haloperidol, 10 mg dexamethasone, and 25 mg diphenhydramine with resolution of her headache. Disposition: discharge with PCP follow-up recommended. Impression: headache. 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 Psychiatric History: Reports: Anxiety Endocrine/Metabolic History: Reports: None - Infectious Disease History Infectious Disease History: Reports: Chicken Pox - Past Surgical History HEENT Surgical History: Reports: Tonsillectomy Cardiovascular Surgical History: Reports: None Respiratory Surgical History: Reports: None Female Surgical History: Reports: None Endocrine Surgical History: Reports: None Social & Family History - Family History Family Medical History: Noncontributory HEENT: Reports: None Cardiac: Reports: None - Tobacco Use Smoking Status *Q: Light Tobacco Smoker Years of Tobacco use: 4 Packs/Tins Daily: 0.1 - Caffeine Use Caffeine Use: Reports: Coffee, Energy Drinks, Soda - Recreational Drug Use Recreational Drug Use: Yes Drug Use in Last 12 Months: Yes Recreational Drug Type: Reports: Marijuana/Hashish Recreational Drug Use Frequency: Socially ED ROS GENERAL - Review of Systems Review Of Systems: See Below - Physical Exam Exam: See Below Course - Vital Signs Last Recorded V/S: Last Vital Signs Temp 36.2 C 07/14/19 12:27 Pulse 90 07/14/19 17:45 Resp 18 07/14/19 17:45 BP 115/75 07/14/19 17:45 Pulse Ox 98 07/14/19 17:45 - Orders/Labs/Meds Labs: Laboratory Tests 07/14/19 07/14/19 07/14/19 Range/Units 12:43 12:43 12:43 WBC 9.90 (4.0-11.0) K/uL RBC 4.92 (4.30-5.90) M/uL Hgb 13.1 (12.0-16.0) g/dL Hct 41.1 (36.0-46.0) % MCV 83.5 (80.0-98.0) fL MCH 26.6 L (27.0-32.0) pg MCHC 31.9 (31.0-37.0) g/dL RDW Std Deviation 42.8 (28.0-62.0) fl RDW Coeff of Gloria 14 (11.0-15.0) % Plt Count 303 (150-400) K/uL MPV 8.60 (7.40-12.00) fL Neut % (Auto) 48.1 (48.0-80.0) % Lymph % (Auto) 44.7 H (16.0-40.0) % Stone % (Auto) 6.7 (0.0-15.0) % Eos % (Auto) 0.4 (0.0-7.0) % Baso % (Auto) 0.1 (0.0-1.5) % Neut # (Auto) 4.8 (1.4-5.7) K/uL Lymph # (Auto) 4.4 H (0.6-2.4) K/uL Stone # (Auto) 0.7 (0.0-0.8) K/uL Eos # (Auto) 0.0 (0.0-0.7) K/uL Baso # (Auto) 0.0 (0.0-0.1) K/uL Nucleated RBC % 0.0 /100WBC Nucleated RBCs # 0 K/uL INR 3.62 D-Dimer, Quantitative < 0.19 (0.0-0.50) mg/L FEU Sodium 143 (136-145) mmol/L Potassium 4.1 (3.5-5.1) mmol/L Chloride 108 H (98-107) mmol/L Carbon Dioxide 26.6 (21.0-32.0) mmol/L BUN 14 (7.0-18.0) mg/dL Creatinine 0.8 (0.6-1.0) mg/dL Est Cr Clr Drug Dosing 99.25 mL/min Estimated GFR (MDRD) > 60.0 ml/min Glucose 87 (74-106) mg/dL Calcium 9.0 (8.5-10.1) mg/dL Meds: Medications Discontinued Medications Generic Name Dose Route Start Last Admin Trade Name Freq PRN Reason Stop Dose Admin Acetaminophen 1,000 mg 07/14/19 14:18 07/14/19 15:10 Tylenol Extra Strength PO 07/14/19 14:19 1,000 mg ONETIME ONE Administration Dexamethasone 10 mg 07/14/19 14:21 07/14/19 15:15 Dexamethasone IVPUSH 07/14/19 14:22 10 mg ONETIME ONE Administration Diphenhydramine HCl 25 mg 07/14/19 14:18 07/14/19 15:13 Benadryl IVPUSH 07/14/19 14:19 25 mg ONETIME ONE Administration Haloperidol Lactate 2 mg 07/14/19 14:19 07/14/19 15:16 Haldol IM 07/14/19 14:20 2 mg ONETIME ONE Administration Sodium Chloride 1,000 mls @ 1,000 mls/hr 07/14/19 14:18 07/14/19 15:17 Normal Saline IV 07/14/19 15:17 1,000 mls/hr .Bolus ONE Administration Ketorolac Tromethamine 15 mg 07/14/19 14:18 07/14/19 15:15 Toradol IVPUSH 07/14/19 14:19 15 mg ONETIME ONE Administration Departure - Departure Time of Disposition: 18:13 Disposition: Home, Self-Care 01 Clinical Impression: Headache - Discharge Information Referrals: PCP,None [Primary Care Provider] - Additional Instructions: You were in seen in the [facility] Emergency Department for evaluation of a headache. Please read and follow all of the instructions below. Please follow up with your primary care physician as needed. When calling for follow-up care, please make the office aware that this follow-up is from your recent emergency room visit. If for any reason you are refused follow-up, please contact the [facility] Emergency Department at and asked to speak to the emergency department charge nurse. Your care today was limited to identifying and treating emergent medical problems only. Many people have subtle differences in their test results that require follow up with their outpatient physician(s) to correctly determine if this represents a normal variation or concerning abnormality with respect to your specific health. The care given to you today was limited to identifying and treating emergent medical problems - you need to request a copy of all of your medical records from today's visit and follow up with your outpatient physician(s) to review both today's visit and your overall health. If you have any new symptoms or if you are at all concerned about your health please return immediately to the emergency department. Prescriptions: If you are uninsured or have financial difficulties with filling your prescription(s), you may consider using a free pharmacy discount service such as niid.to ([employer]) or SureDone ([employer]). These services allow you to search for a medication on your phone (or computer) and obtain a coupon that usually has a significant discount from the list montalvo at a pharmacy. Your physician as well as [facility] does not have a financial relationship with either of these services. You may also wish to speak with your physician to determine if lower cost prescriptions are possible. Obtaining primary care: 1. [facility] provides pediatrics (children), family medicine (children, adults, and some obstetrical care), and internal medicine (adults). Further specialty care is also available. Same day appointments are available. They may be contacted at [phone] and are open Saturday through Saturday 8 AM to 5 PM. The [facility] are located at [facility], [address] [place] [address]. 2. [facility] offers family medicine, internal medicine, women health, and further specialty care. [facility] may be contacted at [phone]. [facility] is located at [address] [facility] [address]. 3. If you have health insurance, please also contact your insurer for a list of accepting providers under your policy, you may contact these providers for further health care. Occupational health: Work related injuries may consider following up with [facility], . Occupational health services are located at [address] [place] [address] and are open Saturday through Saturday from 7: 30 am to 5:00 pm. Obstetrical and Gynecological Care: [facility], , Saturday through Saturday 8 AM to [address] [place] [address]. Eyecare: If you have an eye injury you should follow up with your pet resort concierge or with [facility], at [phone] or [phone] , they are located at [address] [place] [address]. [facility] Mono Ackerman DDS. [address] [place], [place]. Ph. [phone] Prosper Ackerman DDS MS. [address] Ph[address] Ishmael Hernandez DDS. 10 05/[address] [place] [address]. Ph. [phone] Lico Tamez DDS. [address] [facility] [address] [place], [place]. Ph. [phone] Josef Kohli DDS PC. [address] [facility] [address] [place], [place]. Ph. Rodo Youngblood DDS. [address] [facility]. Ph. [phone] [facility]. [address] [place], [place]. Ph. [phone] [facility]. [address] [place] [address], [place], [place]. Ph. [phone] [facility] [address] [place] [id number]. Ph. [facility]. [address] [place] [address] [address] [place]. Ph. [facility]. [address] [place], [place]. Ph. [phone] Headache You were seen in the emergency department for evaluation and treatment of a headache. There are many causes for headaches. Most are painful but do not threaten your health. However there are some types of headaches that can be life threatening. Please return to the emergency department if you develop any of the following: * Your headache worsens, becomes severe, or you have nausea or vomiting. * Fever greater than 100.5 degrees Fahrenheit. * You have neck stiffness. * Changes in vision or hearing. * You have new weakness, numbness, or decreased sensation. * You have dizziness or difficulty walking * You feel faint or like you will pass out. Please follow up with your primary care doctor if your symptoms continue or do not improve. If you have recurrent headaches, your primary care physician may be able to prescribe medications that abort headaches or refer you to a neurologist for further evaluation and work up of your headaches. Home care instructions: * Keep all follow-up appointments with your caregiver or any specialist referral. * Lie down in a dark, quiet room when you have a headache. Keep a headache journal to find out what may trigger your migraine headaches. For example, write down: * What you eat and drink. * How much sleep you get. * Any change to your diet or medicines. * Try massage or other relaxation techniques. * Put ice packs or heat on the head and neck. Use these 3 to 4 times per day for 15 to 20 minutes each time, or as needed. * Limit stress. * Sit up straight, and do not tense your muscles. * Quit smoking if you smoke. * Limit alcohol use. * Decrease the amount of caffeine you drink, or stop drinking caffeine. * Eat and sleep on a regular schedule. * Get 7 to 9 hours of sleep, or as recommended by your caregiver. * Keep lights dim if bright lights bother you and make your headaches worse. You make take over the counter Acetaminophen (Tylenol) and Ibuprofen (Motrin or Aleve) as directed below for relief of pain. * Take 600 mg of ibuprofen (three 200 mg tablets) with a glass of water every 6- 8 hours as needed for pain or fever. Do not take if , allergic to ibuprofen, or if you have severe kidney disease. * Take 1,000 mg of acetaminophen (two 500 mg tablets) with a glass of water every 6-8 hours as needed for pain. Do not take up allergic to acetaminophen. If you have liver disease do not take more than 2000 mg in 24 hours. * You can take these medications at the same time or on separate schedules. * Do not take for more than 10 days. * Do not take with alcohol or other acetaminophen containing medications. * This medication may cause a mildly upset stomach, if so take it with a small snack. Stop taking it if you have persistent abdominal pain, heartburn, or any stomach pain. Do not take this medication if you have known ulcers. * Please read the warnings at the end of this document regarding these medications. IBUPROFEN WARNING: This drug may infrequently cause serious (rarely fatal) bleeding from the stomach or intestines. Also, related drugs rarely have caused blood clots to form, resulting in heart attacks and strokes. This medication might also rarely cause similar problems. Talk to your doctor or pharmacist about the benefits and risks of treatment, as well as other possible medication choices. If you notice any of the following rare but very serious side effects, stop taking ibuprofen and seek immediate medical attention: black stools, persistent stomach/abdominal pain, vomit that looks like coffee grounds, chest pain, weakness on one side of the body, sudden vision changes, slurred speech. IBUPROFEN SIDE EFFECTS: Upset stomach, nausea, vomiting, heartburn, headache, diarrhea, constipation, drowsiness, and dizziness may occur. If any of these effects persist or worsen, notify your doctor or pharmacist promptly. If your doctor has directed you to use this medication, remember that he or she has judged that the benefit to you is greater than the risk of side effects. Many people using this medication do not have serious side effects. Tell your doctor immediately if any of these serious side effects occur: stomach pain, swelling of the hands or feet, sudden or unexplained weight gain, ringing in the ears ( tinnitus). Tell your doctor immediately if any of these unlikely but serious side effects occur: vision changes, rapid or pounding heartbeat, easy bruising or bleeding, difficult/painful swallowing. Tell your doctor immediately if any of these highly unlikely but very serious side effects occur: change in amount of urine, severe headache, very stiff neck, mental/mood changes, persistent sore throat or fever. This drug may rarely cause serious (possibly fatal) liver disease. If you notice any of the following highly unlikely but very serious side effects, stop taking ibuprofen and consult your doctor or pharmacist immediately: yellowing eyes and skin, dark urine, unusual/extreme tiredness. An allergic reaction to this drug is unlikely, but seek immediate medical attention if it occurs. Symptoms of an allergic reaction include: rash, itching/ swelling (especially of the face/tongue/throat), severe dizziness, trouble breathing. This is not a complete list of possible side effects. ACETAMINOPHEN SIDE EFFECTS: This drug usually has no side effects. If you do not have liver problems, the maximum dose of acetaminophen for adults is 4 grams per day (4000 milligrams). Taking more than the maximum daily amount may cause serious (possibly fatal) liver damage. Get medical help right away if you have any of the following symptoms of liver damage: persistent nausea/vomiting, extreme tiredness, stomach/abdominal pain, yellowing eyes/skin, dark urine. If you have liver problems, consult your doctor or pharmacist for a safe dosage of this medication. A very serious allergic reaction to this drug is rare. However , get medical help right away if you notice any symptoms of a serious allergic reaction, including: rash, itching/swelling (especially of the face/tongue/ throat), severe dizziness, trouble breathing. This is not a complete list of possible side effects. If you notice other effects not listed above, contact your doctor or pharmacist. DRUG INTERACTIONS: Your healthcare professionals (e.g., doctor or pharmacist) may already be aware of any possible drug interactions and may be monitoring you for it. Do not start, stop or change the dosage of any medicine before checking with them first. This drug should not be used with the following medications because very serious interactions may occur: cidofovir, ketorolac. If you are currently using any of these medications listed above, tell your doctor or pharmacist before starting ibuprofen. Before using this medication, tell your doctor or pharmacist of all prescription and nonprescription/herbal products you may use, especially of: anti-platelet drugs (e.g., cilostazol, clopidogrel), oral bisphosphonates (e.g., alendronate), other medications for arthritis (e.g., aspirin, methotrexate), "blood thinners" (e.g., enoxaparin, heparin, warfarin), corticosteroids (e.g., prednisone), cyclosporine, desmopressin, high blood pressure drugs (including NEGRO inhibitors such as captopril, angiotensin II receptor antagonists such as losartan, and beta- blockers such as metoprolol), lithium, pemetrexed, "water pills" (diuretics such as furosemide, hydrochlorothiazide, triamterene). Check all prescription and nonprescription medicine labels carefully for other pain/fever drugs ( NSAIDs such as aspirin, celecoxib, naproxen). These drugs are similar to ibuprofen, so taking one of these drugs while also taking ibuprofen may increase your risk of side effects. Consult your doctor or pharmacist for more details. However, if your doctor has prescribed low doses of aspirin to prevent heart attack or stroke (usually at dosages of 81-325 milligrams a day), you should continue to take the aspirin. Daily use of ibuprofen may decrease aspirin 's ability to prevent heart attack/stroke. Talk to your doctor about using a different medication (e.g., acetaminophen) to treat pain/fever. If you must take ibuprofen, talk to your doctor about possibly taking immediate-release aspirin (not enteric-coated) while also taking the ibuprofen dose apart from your aspirin dose. Do not increase your daily dose of aspirin or change the way you take aspirin/other medications without your doctor's approval. This document does not contain all possible interactions. Therefore, before using this product, tell your doctor or pharmacist of all the products you use. Keep a list of all your medications with you, and share the list with your doctor and pharmacist. Sepsis Event Note - Evaluation Sepsis Screening Result: No Definite Risk - Focused Exam Vital Signs: Vital Signs Temp Pulse Resp BP Pulse Ox 07/14/19 17:45 90 18 115/75 98 07/14/19 15:18 81 18 122/75 99 07/14/19 12:27 36.2 C 112 H 18 132/80 97 Date Exam was Performed: 07/14/19 Time Exam was Performed: 18:13
== END 2019-07-14 18:25 | disposition home or self-care (01) ==
LOC: MW.ED 12:18
DX: R51 Headache (principal); Z86.718 Personal history of other venous thrombosis and embolism; F17.210 Nicotine dependence, cigarettes, uncomplicated; Z79.01 Long term (current) use of anticoagulants
CPT/HCPCS: 36415; 70450; 70544; 70551; 80048; 85025; 85379; 85610; 96361; 96374; 96375; 99284; A9270; J1100; J1200; J1630; J1885; J7030

== ENCOUNTER 2020-08-05 22:42 | Emergency (ER) | payer BC, MEDICAID ==
[2020-08-05] MEDS ORDERED: Morphine 4 MG/ML Syringe IVPUSH ONE (23:18)
[2020-08-05] MEDS ORDERED: Morphine 4 MG/ML Syringe ONE (23:19)
--- NOTE | 2020-08-05 23:31 | CT ---
INDICATION: Fall, head trauma. Patient on warfarin. TECHNIQUE: CT head without contrast. COMPARISON: None. FINDINGS: CSF spaces: Within normal limits for age. Brain parenchyma: The rudolph-white differentiation is normal. No sign of mass, hemorrhage, or midline shift. Skull base and calvarium: The visualized paranasal sinuses and mastoid air cells demonstrate no acute or significant findings. The visualized orbits are grossly unremarkable. No skull fractures. IMPRESSION: Unremarkable noncontrast head CT. Please note that all CT scans at this facility use dose modulation, iterative reconstruction, and/or weight-based dosing when appropriate to reduce radiation dose to as low as reasonably achievable. Dictated by Aiden Galeano MD @ Aug 05 2020 11:26PM Signed by Dr. Aiden Galeano @ Aug 05 2020 11:29PM
--- NOTE | 2020-08-06 00:17 | CR ---
Indication: Fell down stairs Technique: Three views of the right elbow Comparison: None Findings: The visualized distal humerus and proximal radius and ulna appear intact. The elbow joint is anatomically aligned. There is no appreciable joint effusion. The surrounding soft tissues are unremarkable. Impression: No acute abnormality. Dictated by Nahomy Mccarthy MD @ Aug 06 2020 12:11AM Signed by Dr. Nahomy Mccarthy @ Aug 06 2020 12:15AM
--- NOTE | 2020-08-06 00:19 | CR ---
Indication: Fell down stairs Technique: Two views of the right forearm Comparison: None Findings: A subtle linear defect is suggested through the posterior aspect of the olecranon process. No evidence of a joint effusion. No overlying soft tissue edema. The radius and ulna otherwise appear intact. The wrist joint is grossly unremarkable. The soft tissues of the forearm are unremarkable. Impression : A subtle linear defect is suggested through the posterior aspect of the olecranon process. No evidence of a joint effusion. No overlying soft tissue edema. Correlate for point tenderness to exclude acute nondisplaced fracture. Dictated by Nahomy Mccarthy MD @ Aug 06 2020 12:11AM Signed by Dr. Nahomy Mccarthy @ Aug 06 2020 12:18AM
[2020-08-06] MEDS ORDERED: Morphine 4 MG/ML Syringe IVPUSH ONE (00:39)
--- NOTE | 2020-08-06 01:10 | EDM.PDOC ---
ED HPI GENERAL MEDICAL PROBLEM - General Chief Complaint: Trauma Stated Complaint: FALL Time Seen by Provider: 08/05/20 23:45 - History of Present Illness INITIAL COMMENTS - FREE TEXT/NARRATIVE: CHIEF COMPLAINT(S): Fall HISTORY OF PRESENT ILLNESS: This is a 24-year-old woman who presents to the emergency department as a trauma alert via EMS with a chief complaint of fall. The patient was triaged as a trauma alert secondary to the patient hitting her head and the patient being on warfarin. The patient states that she was walking and slipped down 3 steps hitting the back of her head. She denies any loss of consciousness. She states that she called EMS because she was having right elbow pain which she describes as 10 out of 10 without any radiation of the pain. She states that located directly on the right elbow. She denies any numbness, tingling, or weakness. She denies any nausea or vomiting. She denies any blurry vision or diplopia. She denies any chest pain or shortness of breath. She denies abdominal pain. She states that she just had her INR checked and it was within normal limits. She takes warfarin for anticoagulation. REVIEW OF SYSTEMS: Constitutional: Denies fever, chills. Eyes: Denies eye pain Ears, Nose, Mouth, & Throat: Denies earache Cardiovascular: Denies chest pain Respiratory: Denies shortness of breath Gastrointestinal: Denies Nausea, vomiting, diarrhea, hematochezia. Genitourinary: Denies hematuria Skin:Denies a rash MSK: Positive for right elbow pain. Neurological: Positive for head injury without loss of consciousness. Denies blurred vision, numbness, tingling, weakness Psychiatric: Denies depression PAST MEDICAL HISTORY: As per history of present illness and as reviewed below otherwise noncontributory. SURGICAL HISTORY: As per history of present illness and as reviewed below otherwise noncontributory. SOCIAL HISTORY: As per history of present illness and as reviewed below otherwise noncontributory. FAMILY HISTORY: As per history of present illness and as reviewed below otherwise noncontributory. EXAMINATION OF ORGAN SYSTEMS/BODY AREAS: VITALS: Blood pressure is 181/93, heart rate 104, respiratory rate 18 with an oxygen saturation 98% on room air. Temperature 37.3 GENERAL: The patient is well-nourished, well-developed, in no acute distress. HEAD, EARS, EYES, NOSE THROAT: Normocephalic, atraumatic. PERRL. EOM are intact. There was no facial bone tenderness. Ears were clear, no hemotympanum. Oropharynx is clear. No missing or chipped teeth. Neck was supple and nontender. RESPIRATORY: No tachypnea. Equal breath sounds are heard bilaterally. Lungs clear to ausculatation. CARDIOVASCULAR: Regular rate and rhythm. Heart sounds were normal. There is no S3, S4, murmur, rub. There is no chest wall tenderness. No crepitus. Radial and dorsalis pedis pulses were palpable and equal bilaterally. ABDOMEN: The abdomen was soft, nondistended, and nontender to palpation. There was no guarding or rebound tenderness. Bowel sounds were present throughout the abdomen and normal. Pelvis was stable and not tender to rock. SPINE: There is no cervical, thoracic or lumbar spine tenderness. EXTREMITIES: Extremity examination revealed no deformity, localized swelling, contusions, or other abnormality. The patient will not move her right elbow. There is tenderness to palpation along the posterior aspect of the right elbow without any obvious changes. Patient is moving all 4 extremities equally. Distal pulses palpable in bilterally. NEUROLOGICAL: Alert and oriented. On neurological examination Phillip Coma Scale was 15. Facies were symmetrical. Strength was limited in right upper extremity secondary to pain. Sensation was intact distally. SKIN: Appropriately warm to touch. No rashes, or pallor. . MEDICAL DECISION MAKING AND COURSE IN THE ED WITH INTERPRETATION/REVIEW OF DIAGNOSTIC STUDIES: This is a 24-year-old woman who presents to emergency department as a trauma alert. Immediately upon entering the resuscitation bay ATLS protocol was followed, the patient is disrobed, and placed on continuous cardiac monitoring as well as pulse oximetry. Patient tells me their name displaying a patent airway, breath sounds are equal bilaterally, and patient has palpable pulses in all 4 extremities. The patient does not have any gross deformities, and does not have any gross deficit. Upon exposure no further lesions are seen. Palpation of the cervical, thoracic, and lumbar spine reveals no tenderness. IV access is obtained, and trauma labs are sent. Patient does have right elbow tenderness. We will provide the patient with 4 mg of IV morphine for pain relief. At this time the patient is neurologically intact and mildly hypertensive. Given her history of warfarin use we will obtain a CT head without contrast. Will obtain a right elbow and right forearm x-ray. I do not believe any further labs or imaging are indicated. The patient was taken immediately to CT. The radiological images were viewed by myself along with reading the report from the radiologist. CT head without contrast does not reveal any acute intracranial abnormality. Right elbow x-ray reveals a subtle linear defect through the posterior aspect of the olecranon process. No evidence of joint effusion. No soft tissue edema. Correlate clinically for a acute nondisplaced fracture. Right forearm x-ray does not reveal any fracture dislocation. It reveals the same subtle linear lucency as prior. On reevaluation the patient's vital signs remained normal. She was neurologically intact. At this time I did discuss results with the patient. I discussed that this time she may have a small fracture of her olecranon process. I discussed that we would be placing her in a posterior mold. She was amenable to this plan. Posterior mold splint was placed by RN. Post splint placement revealed capillary refill less than 2 seconds with good range of motion of all her digits in the right hand and sensation intact. After placement of splint I did discuss with patient she need to follow-up with orthopedics. She is to use Tylenol and Motrin as she did not want any opiate prescriptions. I discussed that she should keep the extremity elevated. I gave her strict return precautions for closed head injury given her warfarin use. She is to return for any new or worsening symptoms. She was amenable to discharge at this time and had no further questions. DISPOSITION: The patient was discharged home in stable condition. The patient will follow up with orthopedics within 3 to 5 days PROCEDURES: None FINAL IMPRESSION(S)/DIAGNOSES: 1. Acute mechanical fall 2. Acute head injury without any evidence of trauma 3. Acute right elbow pain, possible olecranon process fracture nondisplaced Juancho Abernathy M.D. 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 Psychiatric History: Reports: Anxiety Endocrine/Metabolic History: Reports: None - Infectious Disease History Infectious Disease History: Reports: Chicken Pox - Past Surgical History HEENT Surgical History: Reports: Tonsillectomy Cardiovascular Surgical History: Reports: None Respiratory Surgical History: Reports: None Female Surgical History: Reports: None Endocrine Surgical History: Reports: None Social & Family History - Family History Family Medical History: No Pertinent Family History HEENT: Reports: None Cardiac: Reports: None - Caffeine Use Caffeine Use: Reports: Coffee, Energy Drinks, Soda Review of Systems - Review of Systems Review Of Systems: See Below ED EXAM, GENERAL - Physical Exam Exam: See Below Course - Vital Signs Last Recorded V/S: Last Vital Signs Temp 37.3 C 08/05/20 22:45 Pulse 96 08/06/20 01:12 Resp 18 08/06/20 01:12 BP 122/67 08/06/20 01:12 Pulse Ox 99 08/06/20 01:12 - Orders/Labs/Meds Meds: Medications Discontinued Medications Generic Name Dose Route Start Last Admin Trade Name Rosa PRN Reason Stop Dose Admin Morphine Sulfate 4 mg 08/05/20 23:18 08/05/20 23:22 Morphine 4 Mg/Ml Syringe IVPUSH 08/05/20 23:19 4 mg ONETIME ONE Administration Morphine Sulfate Confirm 08/05/20 23:19 08/05/20 23:23 Morphine 4 Mg/Ml Syringe Administered 08/05/20 23:20 Not Given Dose 4 mg .ROUTE .STK-MED ONE Morphine Sulfate 4 mg 08/06/20 00:39 08/06/20 00:53 Morphine 4 Mg/Ml Syringe IVPUSH 08/06/20 00:40 4 mg ONETIME ONE Administration Departure - Departure Time of Disposition: 01:09 Disposition: Home, Self-Care 01 Condition: Fair Clinical Impression: Elbow fracture, right - Discharge Information *PRESCRIPTION DRUG MONITORING PROGRAM REVIEWED*: No *COPY OF PRESCRIPTION DRUG MONITORING REPORT IN PATIENT NORMA: No Instructions: Olecranon Fracture Referrals: PCP,None [Primary Care Provider] - Forms: ED Department Discharge Additional Instructions: You evaluate today on an emergent basis. At this time there was no bleeding on your CAT scan. You do have a possible fracture of your right elbow however it does not appear to be large. We did place you in a splint. I recommend using Tylenol and Motrin for the next 48 hours and then as needed after this. Need to follow-up with orthopedics within 2 to 3 days. If you have any worsening pain, weakness of your hand please return to the emergency department. Please use: Tylenol 500-1000mg every 6 hours (DO NOT TAKE MORE THAN 4000mg in 1 day) Ibuprofen 400mg every 6 hours (Take with food as it can cause ulcers, GI upset) Example schedule: 8:00 AM (Tylenol 500-1000mg) 11:00 AM (Ibuprofen 400mg) 2:00 PM (Tylenol 500-1000mg) 5:00 PM (Ibuprofen 400mg) Ice the area 20 minutes 4 times per day [facility] [address], [facility] [address] [place] [address] The patient is informed of any results of their evaluation and diagnostic workup and all questions are answered. They are given discharge instructions and return precautions. The patient is stable for discharge. The patient states they understand and agree with the plan and that they will return if their symptoms get worse or if they have any new concerns. The following information is given to patients seen in the emergency department who are being discharged to home. This information is to outline your options for follow-up care. We provide all patients seen in our emergency department with a follow-up referral. The need for follow-up, as well as the timing and circumstances, are variable depending upon the specifics of your emergency department visit. If you don't have a primary care physician on staff, we will provide you with a referral. We always advise you to contact your personal physician following an emergency department visit to inform them of the circumstance of the visit and for follow-up with them and/or the need for any referrals to a consulting specialist. The emergency department will also refer you to a specialist when appropriate. This referral assures that you have the opportunity for follow-up care with a specialist. All of these measure are taken in an effort to provide you with optimal care, which includes your follow-up. Under all circumstances we always encourage you to contact your private physician who remains a resource for coordinating your care. When calling for follow-up care, please make the office aware that this follow-up is from your recent emergency room visit. If for any reason you are refused follow-up, please contact the [facility] Emergency Department at and asked to speak to the emergency department charge nurse. Sepsis Event Note (ED) - Evaluation Sepsis Screening Result: No Definite Risk - Focused Exam Vital Signs: Vital Signs Temp Pulse Resp BP Pulse Ox 08/06/20 01:12 96 18 122/67 99 08/05/20 22:45 37.3 C 104 H 18 181/93 H 98
[2020-08-06 01:13] VITALS: BP 122/67; PULSE 96
== END 2020-08-06 01:15 | disposition home or self-care (01) ==
LOC: MW.ED 22:42
DX: S52.021A Displaced fracture of olecranon process without intraarticular extension of right ulna, initial encounter for closed fracture (principal); S09.90XA Unspecified injury of head, initial encounter; Z86.718 Personal history of other venous thrombosis and embolism; Z79.01 Long term (current) use of anticoagulants; W10.9XXA Fall (on) (from) unspecified stairs and steps, initial encounter
CPT/HCPCS: 29105; 70450; 73080; 73090; 96374; 96376; 99284; J2270; 99283

== ENCOUNTER 2022-04-04 15:51 | Emergency (ER) | payer BC ==
[2022-04-04] MEDS ORDERED: Ketorolac 30 MG/ML SDV IVPUSH ONE (19:02)
[2022-04-04 19:51] LABS: CARBON DIOXIDE,CO2 25.1 mmol/L (21.0-32.0); POTASSIUM,K 3.8 mmol/L (3.5-5.1)
[2022-04-04] MEDS ORDERED: Iopamidol 755 MG/ML 500 ML Multipack Bottle IVPUSH STA (20:38)
[2022-04-04] MEDS ORDERED: cefTRIAXone 1 GM in Sodium Chloride 0.9% 50 ML IV ONE (20:56)
[2022-04-04] MEDS ORDERED: Azithromycin 500 MG in Sodium Chloride 0.9% 250 ML IV ONE (20:57)
[2022-04-04] MEDS ORDERED: Enoxaparin 150 MG/1 ML Syringe SUBCUT STA (21:01)
[2022-04-04 22:50] LABS: CORONAVIRUS COVID-19 NAA NEGATIVE (NEGATIVE); INFLUENZA A NAA NEGATIVE (NEGATIVE); INFLUENZA B NAA NEGATIVE (NEGATIVE)
[2022-04-04 23:06] VITALS: BP 141/98; PULSE 113
== END 2022-04-05 00:14 ==
LOC: MW.ED 15:51
DX: R79.89 Other specified abnormal findings of blood chemistry (principal); Z79.01 Long term (current) use of anticoagulants; Z20.822 Contact with and (suspected) exposure to COVID-19
CPT/HCPCS: 0240U; 36415; 71275; 80053; 81001; 81025; 84484; 85025; 85379; 85610; 85730; 87086; 93005; 96365; 96367; 96372; 96375; 99285; J0456; J0696; J1650; J1885; J7050; Q9967

== ENCOUNTER 2023-01-12 12:11 | Emergency (ER) | payer BC, MEDICAID ==
[2023-01-12] MEDS ORDERED: Sodium Chloride 0.9% 10 ML Syringe FLUSH PRN (12:17)
[2023-01-12] MEDS ORDERED: Sodium Chloride 0.9% 2.5 ML Syringe FLUSH PRN (12:17)
[2023-01-12] MEDS ORDERED: Sodium Chloride 0.9% 1,000 ML IV STA ×2 (12:45→13:31)
[2023-01-12 12:48] LABS: BASOPHILS PERCENT AUTO 0.2 % (0.0-1.5); EOSINOPHILS PERCENT AUTO 0.3 % (0.0-7.0); HEMATOCRIT 40.8 % (36.0-46.0); HEMOGLOBIN 13.9 g/dL (12.0-16.0); LYMPHOCYTES ABSOLUTE AUTO 2.5 K/uL (0.6-2.4); LYMPHOCYTES PERCENT AUTO 22.4 % (16.0-40.0); MEAN CORPUSCULAR HEMOGLOBIN 28.8 pg (27.0-32.0); MEAN CORPUSCULAR HGB CONC 34.1 g/dL (31.0-37.0); MEAN CORPUSCULAR VOLUME 84.5 fL (80.0-98.0); MONOCYTES ABSOLUTE AUTO 1.3 K/uL (0.0-0.8); MONOCYTES PERCENT AUTO 11.8 % (0.0-15.0); NEUTROPHILS ABSOLUTE AUTO 7.2 K/uL (1.4-5.7); NEUTROPHILS PERCENT AUTO 65.3 % (48.0-80.0); PLATELET COUNT,PLT 336 K/uL (150-400); RED BLOOD CELL COUNT 4.83 M/uL (4.30-5.90); WHITE BLOOD CELL COUNT,WBC 10.98 K/uL (4.0-11.0)
[2023-01-12 12:56] LABS: INR 2.79 (0.86-1.11)
[2023-01-12 13:14] LABS: A/G RATIO 0.7 (0.9-1.6); ALANINE AMINOTRANSFERASE,ALT 19 IU/L (14-63); ALBUMIN 3.1 g/dL (3.4-5.0); ALKALINE PHOSPHATASE 89 U/L (46-116); ASPARTATE AMNIOTRANSFERASE,AST 11 IU/L (15-37); BILIRUBIN TOTAL 0.6 mg/dL (0.2-1.0); BLOOD UREA NITROGEN,BUN 8 mg/dL (7.0-18.0); CALCIUM 8.5 mg/dL (8.5-10.1); CHLORIDE,CL 102 mmol/L (98-107); CREATININE 0.9 mg/dL (0.6-1.0); EST CRCL DRUG DOSING (CG) 85.24 mL/min; GLUCOSE RANDOM 131 mg/dL (74-106); LIPASE 23 U/L (16-77); MAGNESIUM 1.9 mg/dL (1.8-2.4); POTASSIUM,K 3.4 mmol/L (3.5-5.1); PROTEIN TOTAL,TP 7.4 g/dL (6.4-8.2); SODIUM,NA 136 mmol/L (136-145)
[2023-01-12 13:19] LABS: ESTIMATED GFR 90 mL/min (>60)
[2023-01-12 15:51] VITALS: BP 123/86; PULSE 96
== END 2023-01-12 15:47 | disposition home or self-care (01) ==
LOC: MW.ED 12:11
DX: R07.9 Chest pain, unspecified (principal); Z86.718 Personal history of other venous thrombosis and embolism; Z20.822 Contact with and (suspected) exposure to COVID-19; Z79.01 Long term (current) use of anticoagulants; Z79.899 Other long term (current) drug therapy
CPT/HCPCS: 36415; 71045; 80053; 83690; 83735; 84484; 84703; 85025; 85379; 85610; 87635; 93005; 99285; J3490; J7030; 93010; 99283; U0002

== ENCOUNTER 2023-05-31 17:12 | Emergency (ER) | payer MEDICAID ==
[2023-06-01 02:31] VITALS: BP 136/91; PULSE 91
== END 2023-05-31 19:18 ==
LOC: MW.ED 17:12
DX: J20.8 Acute bronchitis due to other specified organisms (principal); Z79.01 Long term (current) use of anticoagulants
CPT/HCPCS: 71046; 71046-26; 99282; 99283

== ENCOUNTER 2023-07-01 13:18 | Emergency (ER) | payer MEDICAID ==
[2023-07-01 14:18] LABS: BASOPHILS ABSOLUTE AUTO 0.04 K/uL (0.00-0.20); BASOPHILS PERCENT AUTO 0.4 % (0.0-1.0); EOSINOPHILS ABSOLUTE AUTO 0.08 K/uL (0.00-0.45); EOSINOPHILS PERCENT AUTO 0.8 % (0.0-6.0); HEMATOCRIT 38.5 % (37.0-47.0); HEMOGLOBIN 13.4 g/dL (12.0-16.0); IMMATURE GRAN ABSOLUTE AUTO 0.04 K/uL (0.00-0.05); IMMATURE GRAN PERCENT AUTO 0.4 % (0.0-0.4); LYMPHOCYTES PERCENT AUTO 39.3 % (24.0-44.0); MEAN CORPUSCULAR HEMOGLOBIN 28.9 pg (28.0-32.0); MEAN CORPUSCULAR HGB CONC 34.8 g/dL (32.0-36.0); MEAN PLATELET VOLUME 8.5 fL (9.4-12.3); MONOCYTES ABSOLUTE AUTO 0.65 K/uL (0.00-0.80); MONOCYTES PERCENT AUTO 6.4 % (0.0-8.0); NEUTROPHILS ABSOLUTE AUTO 5.36 K/uL (1.80-7.70); NEUTROPHILS PERCENT AUTO 52.7 % (41.0-71.0); PLATELET COUNT,PLT 337 K/uL (150-400); RED BLOOD CELL COUNT 4.64 M/uL (4.10-5.30); WHITE BLOOD CELL COUNT,WBC 10.17 K/uL (3.9-11.3)
[2023-07-01 14:32] LABS: INR 1.93 (0.86-1.11); PTT,PARTIAL THROMBOPLSTIN TIME 56.7 SEC (23.9-30.7)
[2023-07-01] MEDS: Acetaminophen 325 MG Tab PO ONE (14:45)
[2023-07-01] MEDS: Alum Hydro/Mag Hydro/Simeth XS 15 ML, Lidocaine 2% 5 ML PO ONE (14:47)
[2023-07-01 14:56] LABS: A/G RATIO 0.8 (0.9-1.6); ALBUMIN 3.1 g/dL (3.4-5.0); BILIRUBIN TOTAL 0.2 mg/dL (0.2-1.0); CALCIUM 8.6 mg/dL (8.5-10.1); CARBON DIOXIDE,CO2 22.5 mmol/L (21.0-32.0); CREATININE 0.8 mg/dL (0.6-1.0); EST CRCL DRUG DOSING (CG) 99.76 mL/min; POTASSIUM,K 3.4 mmol/L (3.5-5.1); PROTEIN TOTAL,TP 7.1 g/dL (6.4-8.2)
[2023-07-01 16:45] LABS: CORONAVIRUS COVID-19 NAA NEGATIVE (NEGATIVE); INFLUENZA A NAA NEGATIVE (NEGATIVE); INFLUENZA B NAA NEGATIVE (NEGATIVE); RESPIRATORY SYNCYTIAL VIR NAA NEGATIVE (NEGATIVE)
[2023-07-01 17:15] VITALS: BP 158/80; PULSE 87
== END 2023-07-01 17:14 | disposition home or self-care (01) ==
LOC: MW.ED 13:18
DX: R07.2 Precordial pain (principal); Z79.01 Long term (current) use of anticoagulants
CPT/HCPCS: 0241U; 36415; 71046; 80053; 84484; 85025; 85379; 85610; 85730; 93005; 99285; A9270; 93010; 99283

== ENCOUNTER 2024-03-03 07:29 | Emergency (ER) | payer MEDICAID ==
[2024-03-03] MEDS ORDERED: Sodium Chloride 0.9% 2.5 ML Syringe FLUSH PRN (07:37)
[2024-03-03] MEDS ORDERED: Sodium Chloride 0.9% 10 ML Syringe FLUSH PRN (07:37)
[2024-03-03 08:24] LABS: BASOPHILS ABSOLUTE AUTO 0.05 K/uL (0.00-0.20); BASOPHILS PERCENT AUTO 0.4 % (0.0-1.0); EOSINOPHILS ABSOLUTE AUTO 0.04 K/uL (0.00-0.45); EOSINOPHILS PERCENT AUTO 0.3 % (0.0-6.0); HEMATOCRIT 41.3 % (37.0-47.0); HEMOGLOBIN 14.3 g/dL (12.0-16.0); IMMATURE GRAN ABSOLUTE AUTO 0.03 K/uL (0.00-0.05); IMMATURE GRAN PERCENT AUTO 0.2 % (0.0-0.4); LYMPHOCYTES ABSOLUTE AUTO 2.95 K/uL (1.00-4.80); LYMPHOCYTES PERCENT AUTO 23.4 % (24.0-44.0); MEAN CORPUSCULAR HEMOGLOBIN 28.1 pg (28.0-32.0); MEAN CORPUSCULAR HGB CONC 34.6 g/dL (32.0-36.0); MEAN CORPUSCULAR VOLUME 81.3 fL (83.0-99.0); MEAN PLATELET VOLUME 8.2 fL (9.4-12.3); MONOCYTES ABSOLUTE AUTO 0.98 K/uL (0.00-0.80); MONOCYTES PERCENT AUTO 7.8 % (0.0-8.0); NEUTROPHILS ABSOLUTE AUTO 8.56 K/uL (1.80-7.70); NEUTROPHILS PERCENT AUTO 67.9 % (41.0-71.0); PLATELET COUNT,PLT 387 K/uL (150-400); RED BLOOD CELL COUNT 5.08 M/uL (4.10-5.30); WHITE BLOOD CELL COUNT,WBC 12.61 K/uL (3.9-11.3)
[2024-03-03 08:35] LABS: INR 4.68 (0.86-1.11)
[2024-03-03 08:57] LABS: A/G RATIO 0.8 (0.9-1.6); ALBUMIN 3.5 g/dL (3.4-5.0); BILIRUBIN TOTAL 0.4 mg/dL (0.2-1.0); CALCIUM 9.1 mg/dL (8.5-10.1); CARBON DIOXIDE,CO2 23.9 mmol/L (21.0-32.0); EST CRCL DRUG DOSING (CG) 79.11 mL/min; POTASSIUM,K 3.8 mmol/L (3.5-5.1)
[2024-03-03 09:05] LABS: TSH ULTRASENSITIVE 2.04 uIU/mL (0.36-3.74)
[2024-03-03] MEDS: Iopamidol 755 MG/ML 500 ML Multipack Bottle IVPUSH STA (09:25)
[2024-03-03 10:14] VITALS: BP 161/97; PULSE 72
== END 2024-03-03 10:12 | disposition home or self-care (01) ==
LOC: MW.ED 07:29
DX: J98.4 Other disorders of lung (principal); R79.1 Abnormal coagulation profile; Z75.8 Other problems related to medical facilities and other health care; Z79.01 Long term (current) use of anticoagulants
CPT/HCPCS: 36415; 71046; 71275; 80053; 84443; 84484; 85025; 85610; 93005; 99285; Q9967; 93010

== ENCOUNTER 2024-04-09 13:22 | Emergency (ER) | payer MEDICAID ==
[2024-04-09] MEDS: Morphine 4 MG/ML Syringe IVPUSH STA (15:41)
[2024-04-09] MEDS: Ondansetron 4 MG/2 ML SDV IVPUSH STA (15:41)
[2024-04-09 15:44] LABS: APPEARANCE,URINE SLT CLOUDY; GLUCOSE,URINE NEGATIVE (NEGATIVE); KETONES,URINE NEGATIVE (NEGATIVE); LEUKOCYTE ESTERASE,URINE MODERATE (NEGATIVE); NITRITE,URINE POSITIVE (NEGATIVE); OCCULT BLOOD,URINE MODERATE (NEGATIVE); PROTEIN,URINE 30 mg/dL (NEGATIVE)
[2024-04-09 15:47] LABS: BILIRUBIN,URINE SMALL (NEGATIVE); COLOR,URINE DARK YELLOW
[2024-04-09 15:52] LABS: BASOPHILS ABSOLUTE AUTO 0.06 K/uL (0.00-0.20); BASOPHILS PERCENT AUTO 0.5 % (0.0-1.0); EOSINOPHILS ABSOLUTE AUTO 0.07 K/uL (0.00-0.45); EOSINOPHILS PERCENT AUTO 0.6 % (0.0-6.0); HEMATOCRIT 37.2 % (37.0-47.0); HEMOGLOBIN 12.5 g/dL (12.0-16.0); IMMATURE GRAN ABSOLUTE AUTO 0.02 K/uL (0.00-0.05); IMMATURE GRAN PERCENT AUTO 0.2 % (0.0-0.4); LYMPHOCYTES ABSOLUTE AUTO 4.43 K/uL (1.00-4.80); LYMPHOCYTES PERCENT AUTO 38.1 % (24.0-44.0); MEAN CORPUSCULAR HEMOGLOBIN 28.2 pg (28.0-32.0); MEAN CORPUSCULAR HGB CONC 33.6 g/dL (32.0-36.0); MEAN CORPUSCULAR VOLUME 83.8 fL (83.0-99.0); MEAN PLATELET VOLUME 8.2 fL (9.4-12.3); MONOCYTES ABSOLUTE AUTO 0.89 K/uL (0.00-0.80); MONOCYTES PERCENT AUTO 7.6 % (0.0-8.0); NEUTROPHILS ABSOLUTE AUTO 6.17 K/uL (1.80-7.70); PLATELET COUNT,PLT 460 K/uL (150-400); RED BLOOD CELL COUNT 4.44 M/uL (4.10-5.30); WHITE BLOOD CELL COUNT,WBC 11.64 K/uL (3.9-11.3)
[2024-04-09 15:54] LABS: BACTERIA,URINE 4+ (NEGATIVE); CALCIUM OXALATE CRYSTALS,URINE FEW (NEGATIVE); EPITHELIAL CELLS,URINE FEW (NONE-FEW); MUCUS,URINE LIGHT (NONE-MOD); WBC,URINE 20-30 (0-5/HPF)
[2024-04-09 16:10] LABS: A/G RATIO 0.7 (0.9-1.6); BILIRUBIN TOTAL 1.1 mg/dL (0.2-1.0); CALCIUM 8.9 mg/dL (8.5-10.1); CARBON DIOXIDE,CO2 25.9 mmol/L (21.0-32.0); CREATININE 0.8 mg/dL (0.6-1.0); EST CRCL DRUG DOSING (CG) 98.88 mL/min; POTASSIUM,K 3.5 mmol/L (3.5-5.1); PROTEIN TOTAL,TP 7.2 g/dL (6.4-8.2)
[2024-04-09 16:44] LABS: INR 2.09 (0.86-1.11)
[2024-04-09] MEDS: Piperacillin/Tazobactam 4.5 GM in Sodium Chloride 0.9% 100 ML IV STA (17:12)
[2024-04-09] MEDS: Sodium Chloride 0.9% 1,000 ML IV STA (17:12)
[2024-04-09 17:29] LABS: LACTIC ACID 0.5 mmol/L (0.4-2.0)
[2024-04-09 18:27] VITALS: BP 130/75; PULSE 96
== END 2024-04-09 18:25 | disposition home or self-care (01) ==
LOC: MW.ED 13:22
DX: N30.01 Acute cystitis with hematuria (principal); R74.01 Elevation of levels of liver transaminase levels; K82.8 Other specified diseases of gallbladder; D68.61 Antiphospholipid syndrome; Z79.01 Long term (current) use of anticoagulants; Z75.8 Other problems related to medical facilities and other health care; Z79.899 Other long term (current) drug therapy
CPT/HCPCS: 36415; 71046; 76705; 80053; 81001; 83605; 83690; 84703; 85025; 85610; 87040; 87086; 96365; 96375; 99284; J2270; J2405; J2543; J3490; J7030; 87077; 87088; 87186

== ENCOUNTER 2024-04-10 17:55 | Emergency (ER) | payer MEDICAID ==
[2024-04-10 19:02] LABS: BASOPHILS ABSOLUTE AUTO 0.04 K/uL (0.00-0.20); BASOPHILS PERCENT AUTO 0.4 % (0.0-1.0); EOSINOPHILS ABSOLUTE AUTO 0.12 K/uL (0.00-0.45); EOSINOPHILS PERCENT AUTO 1.3 % (0.0-6.0); HEMATOCRIT 43.2 % (37.0-47.0); HEMOGLOBIN 14.4 g/dL (12.0-16.0); IMMATURE GRAN ABSOLUTE AUTO 0.02 K/uL (0.00-0.05); IMMATURE GRAN PERCENT AUTO 0.2 % (0.0-0.4); LYMPHOCYTES PERCENT AUTO 51.1 % (24.0-44.0); MEAN CORPUSCULAR HEMOGLOBIN 27.9 pg (28.0-32.0); MEAN CORPUSCULAR HGB CONC 33.3 g/dL (32.0-36.0); MEAN CORPUSCULAR VOLUME 83.6 fL (83.0-99.0); MEAN PLATELET VOLUME 8.1 fL (9.4-12.3); MONOCYTES ABSOLUTE AUTO 0.67 K/uL (0.00-0.80); MONOCYTES PERCENT AUTO 7.4 % (0.0-8.0); NEUTROPHILS ABSOLUTE AUTO 3.55 K/uL (1.80-7.70); NEUTROPHILS PERCENT AUTO 39.6 % (41.0-71.0); PLATELET COUNT,PLT 440 K/uL (150-400); RED BLOOD CELL COUNT 5.17 M/uL (4.10-5.30)
[2024-04-10 19:26] LABS: A/G RATIO 0.7 (0.9-1.6); ALBUMIN 2.9 g/dL (3.4-5.0); BILIRUBIN TOTAL 0.4 mg/dL (0.2-1.0); CALCIUM 8.7 mg/dL (8.5-10.1); CARBON DIOXIDE,CO2 22.6 mmol/L (21.0-32.0); CREATININE 0.8 mg/dL (0.6-1.0); EST CRCL DRUG DOSING (CG) 98.88 mL/min; POTASSIUM,K 3.9 mmol/L (3.5-5.1); PROTEIN TOTAL,TP 7.1 g/dL (6.4-8.2)
[2024-04-10 19:29] LABS: LACTIC ACID 0.6 mmol/L (0.4-2.0)
[2024-04-10 20:16] VITALS: BP 125/81; PULSE 73
== END 2024-04-10 20:15 | disposition home or self-care (01) ==
LOC: MW.ED 17:55
DX: R78.81 Bacteremia (principal); Z75.8 Other problems related to medical facilities and other health care; Z79.01 Long term (current) use of anticoagulants; Z79.899 Other long term (current) drug therapy
CPT/HCPCS: 36415; 80053; 83605; 85025; 87040; 99283

== ENCOUNTER 2024-04-17 06:31 | Day surgery (SDC) | payer MEDICAID ==
[2024-04-17] MEDS: Scopalamine 1mg/3day Transdermal Patch TOP ONE (06:45)
[2024-04-17] MEDS: Pregabalin 75 MG Cap PO ONE (06:45)
[2024-04-17] MEDS: Lactated Ringers 1,000 ML IV SCH (06:56)
[2024-04-17] MEDS ORDERED: Bupivacaine 0.5% 30 ML SDV ONE (07:07)
[2024-04-17] MEDS ORDERED: Midazolam 1 MG/ML 2 ML SDV ONE (07:09)
[2024-04-17] MEDS ORDERED: Morphine 10 MG/ML SDV ONE (07:09)
[2024-04-17] MEDS ORDERED: Propofol 200 MG/20 ML SDV ONE (07:09)
[2024-04-17] MEDS ORDERED: dexmedeTOMIDine HCl 200 MCG/2 ML SDV ONE (07:09)
[2024-04-17] MEDS ORDERED: fentaNYL 100 MCG/2 ML SDV ONE (07:09)
[2024-04-17] MEDS ORDERED: Ropivacaine 0.5% 5 MG/ML 30 ML SDV ONE (07:10)
[2024-04-17] MEDS ORDERED: Bupivacaine 0.25% 30 ML SDV ONE ×2 (07:10→07:21)
[2024-04-17] MEDS ORDERED: Dexamethasone 4 MG/ML 5 ML MDV ONE (07:11)
[2024-04-17] MEDS ORDERED: Lidocaine 2% 5 ML SDV ONE (07:11)
[2024-04-17] MEDS ORDERED: Rocuronium Bromide 50 MG/5 ML Syringe ONE ×2 (07:12→08:40)
[2024-04-17] MEDS ORDERED: Naloxone 0.4 MG/ML SDV IVPUSH PRN (07:47)
[2024-04-17] MEDS ORDERED: Ondansetron 4 MG/2 ML SDV IVPUSH PRN (07:47)
[2024-04-17] MEDS ORDERED: Metoclopramide 10 MG/2 ML SDV IVPUSH PRN (07:47)
[2024-04-17] MEDS ORDERED: Morphine 2 MG/ML SYRINGE IVPUSH PRN (07:47)
[2024-04-17] MEDS ORDERED: HYDROmorphone 1 MG/ML Syringe IVPUSH PRN (07:47)
[2024-04-17] MEDS ORDERED: Phenylephrine HCl In 0.9% NaCl 1 MG/10 ML Syringe IVPUSH PRN (07:47)
[2024-04-17] MEDS ORDERED: Albuterol 0.083% 2.5 MG/3 ML Neb Soln NEB PRN (07:47)
[2024-04-17] MEDS: Enoxaparin 30 MG/0.3 ML Syringe SUBCUT ONE (07:50)
[2024-04-17] MEDS ORDERED: Ketorolac 30 MG/ML SDV ONE (09:28)
[2024-04-17] MEDS ORDERED: Sugammadex Sodium 200 MG/2 ML VIAL IV ONE (09:29)
[2024-04-17] MEDS ORDERED: Ondansetron 4 MG/2 ML SDV ONE (09:29)
[2024-04-17] MEDS: fentaNYL 50 MCG/ML SDV IVPUSH PRN (11:08)
[2024-04-17] MEDS: Meperidine PF 25 MG/ML SDV IV ONE (12:10)
[2024-04-17 14:40] VITALS: BP 119/70; PULSE 89
== END 2024-04-17 12:56 | disposition home or self-care (01) ==
LOC: MW.SDS 06:31
PROVIDERS: ATTEND Surgery
DX: K80.10 Calculus of gallbladder with chronic cholecystitis without obstruction (principal); F41.9 Anxiety disorder, unspecified; F32.A Depression, unspecified; E66.9 Obesity, unspecified; Z68.41 Body mass index [BMI] 40.0-44.9, adult; Z87.891 Personal history of nicotine dependence
CPT/HCPCS: 47562; 64488; 81025; A9270; J0131; J0665; J1100; J1650; J1885; J2175; J2250; J2272; J2405; J2704; J2795; J3010; J3490; J7120; 00790